=== PATIENT | female | born 1940 | race Caucasian/White ===

== ENCOUNTER 2024-03-13 21:00 | Inpatient (IN) | payer MEDICARE, BC, SELFPAY ==
[2024-03-13 18:13] VITALS: BP 177/86
[2024-03-13 18:59] VITALS: BMI 19.7
[2024-03-13 19:00] VITALS: BP 150/62
--- NOTE | 2024-03-13 19:14 | EDRN ---
Report received, introduced myself to patient and family, patient is in a lot of pain, spoke with FREDY Tarango who signed on to patient, and informed her she will probably need pain medication before she is able to go to xray.
[2024-03-13] MEDS: ZOFRAN 4 MG IV (19:30)
[2024-03-13] MEDS: DILAUDID 0.5 MG IV (19:30)
--- NOTE | 2024-03-13 20:45 | EDRN ---
Hospitalist at bedside working on admission
--- NOTE | 2024-03-13 20:51 | HPS.HSE ---
Family Physician
-
Family Physician: * NONE
Chief Complaint
-
Mechanical fall
History of Present Illness
This is an 83-year-old female with past medical history of CAD status post stenting in 2005, hypertension, hyperlipidemia, history of melena or status post resection and lymph node dissection who presents to the emergency department after a
mechanical fall at home.
Patient was visiting granddaughter. While walking down the stairs she was not pain attention and missed a step resulting in a fall. She there was no loss of consciousness. She was immediately awake and had no seizure-like activity. She had
immediate pain and difficulty ambulating so was brought to the emergency department where she was found to have a right sided intertrochanteric hip fracture. The fall was from standing height. Patient denies history of osteoporosis.
Patient had a recent stress test followed by cardiac cath on February 22. The cath showed patent stent and otherwise clean coronaries. This was done partially preparation for skin biopsy and lymph node dissection. The patient did not require
chemotherapy after the surgical intervention.
In the ED she was hypertensive to 170/80 with otherwise stable vital signs. CT scan of the head shows no acute intracranial process. C-spine CT was negative for subluxation or fracture. He femoral and knee x-rays resulted in identification of a
right-sided comminuted angulated intra trochanteric hip fracture.
Medical History
Past Medical History
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
Past Surgical History: Reports Other (Lymph node dissection)
Social History
Tobacco: Non-smoker
Alcohol: Occasional
Drug: None
Personal:
Living: Alone
Employment: Retired
Family History
Family History: CAD
Allergies / Home Medications
Allergies reflects when Allergies were last updated in [facility].
Home Medications with original date entered in [facility]
Allergy/Medication List:
Allergies
Allergy/AdvReac Type Severity Reaction Status Date / Time
No Known Allergies Allergy Unverified 03/13/24 18:52
Home Medications
ezetimibe 10 mg tablet 10 mg PO DAILY 03/13/24
losartan 50 mg tablet 50 mg PO DAILY 03/13/24
rosuvastatin 40 mg tablet 40 mg PO DAILY 03/13/24
Aspirin 81mg tablet, 81 mg PO DAILY
Review of Systems
-
History Source: Patient
Constitutional: Reports No Symptoms
EENT: Reports No Symptoms
Respiratory: Reports No Symptoms
Cardiac: Reports No Symptoms
Abdomen/GI: Reports No Symptoms
: Reports No Symptoms
Musculoskeletal: Reports Joint Pain
Skin: Reports No Symptoms
Neurological: Reports No Symptoms
Endocrine: Reports No Symptoms
Hematologic/Lymphatic: Reports No Symptoms
Psych: Reports No Symptoms
Physical Exam
Vital Signs
Vital Signs
Temp Pulse Resp BP Pulse Ox
98.1 F 97 16 177/86 98
03/13/24 18:09 03/13/24 18:13 03/13/24 18:09 03/13/24 18:13 03/13/24 18:13
Physical Exam
General: Well Developed, Well Nourished and Pain
HEENT: NormoCephalic, Anicteric, Moist mucous membranes, Atraumatic and PERRLA
Respiratory: Clear
Cardiac: S1/S2 and Regular Rhythm
Breast: Deferred by me
GI: Soft, Non Tender, Non Distended and Normal Bowel Sounds
Rectal: Deferred by Provider
Genito-urinary: Deferred by me
Musculoskeletal: No Clubbing, No Cyanosis, No Edema and Other (Found right leg externally rotated but did not attempt to straighten due to pain and known fracture. Distal pulses intact)
Skin: Warm
Neuro: AO x 3 and No Sensory Deficits
Hematologic/Lymphatic: No Lymphadenopathy
Psych: Calm
Data Reviewed
-
Diagnostic Radiology: Report Reviewed by me
CT Scan: Report Reviewed by me
Lab Data: Labs Reviewed by me
Old Records: Reviewed
Impression/Plan
-
IMPRESSION:
[id number] with history of CAD status post stent (2005), hypertension and history of skin cancer status post excision and lymph node dissection who presents to the emergency department with right hip pain following a mechanical fall from a
standing height which resulted in right comminuted angulated intratrochanteric hip fracture. Well appearing otherwise.
PLAN:
1. Hip Fracture -
- admit to med/surg
- Ortho (Dr. Shepard ) aware, NPO after midnight, She had a normal cardiac cath on February 23 2024, patent stent and [place] vessels. Done in preparation for skin excision and lymph dissection for melanoma.
- pain control and antiemetics
- PT eval
- IVF to KVO
- continue aspirin 81 after procedure
- continue daily losartan and statin
2.HTN
- as above, continuing losartan and statin
DVT PPX - heparin sq pending creatinine
Code Status - Full Code
[2024-03-13 21:06] VITALS: BP 142/75
[2024-03-13 21:07] VITALS: BP 142/75
--- NOTE | 2024-03-13 21:07 | ED.GENMED ---
History of Present Illness
General
Chief Complaint: Fall
Source: patient and family
Exam Limitations: none
Time Seen by Provider: 03/13/24 18:39
Nursing documentation reviewed up to this point in time: agreed with
History of Present Illness
History of Present Illness:
83-year-old female past medical history of CAD, hypertension presenting to the emergency department after mechanical fall over 1 step landing mainly on her right leg unable to ambulate since EMS had to bring her to the ER. Of note in the triage
note she was listed as taking blood thinners but she does not currently take Plavix. Claims that she may have hit her head but denies any symptoms in this regard no head pain neck pain numbness or weakness. Patient's only concern at this point is
the right hip pain.
Review of Systems
Review of Systems
Allergies reviewed?: Yes
All Other Systems: ROS reviewed and negative except as documented in HPI and ROS
Phy Exam
Physical Exam
Physical Exam:
GENERAL: Alert , in no apparent distress
EYE: pupils equal and reactive
NECK: Supple, no significant adenopathy.
ENT: o/p clr, mmm.
CARDIAC: Regular rate and rhythm .
LUNGS: Clear breath sounds bilaterally, no acute respiratory distress, no wheezes/rales/rhonchi
ABDOMEN: Soft, without focal tenderness, no r/g, no cvat
NEUROLOGICAL: Alert and oriented, no focal neuro deficits
SKIN: Warm and dry, skin intact.
MUSCULOSKELETAL: Patient is holding her right hip in flexion with knee flexion as well unwilling to move at the hip. Also externally rotated. Normal distal neurovascular examination.
PSYCH: Normal and appropriate interaction.
Course
Orders/Labs/Results
Orders:
Orders
03/13/24 18:07
CT Head W/o Iv Contrast Urgent
Comment:
Reason For Exam: fall
Knee, Right 4 or More Views [CR Knee- Right 4 Or More View*] Urgent
Comment:
Reason For Exam: fall
03/13/24 18:08
Hip, Right 2-3 Views [CR Hip - RT w/wo Pel 2-3 Vw*] Urgent
Comment:
Reason For Exam: fall
Include a pelvis x-ray?: Yes
03/13/24 18:09
Femur, Right 2 View [CR Femur - Right Min 2 Vw] Urgent
Comment:
Reason For Exam: fall
03/13/24 18:40
CT Cervical Spine W/o Iv Contr Urgent
Comment:
Reason For Exam: fall hit head
03/13/24 19:25
HYDROmorphone [Dilaudid] 0.5 mg IV NOW STA
03/13/24 19:26
Ondansetron Injectable [Zofran] 4 mg IV NOW STA
03/13/24 20:27
CBC/With Diff [Complete Blood Count/With Diff] Urgent
CMP [Comprehensive Metabolic Panel] Urgent
03/13/24 20:36
Admit/Transfer Patient As Directed
Co-Sign Provider:
Level of Care: Inpatient admission
Assign to:: Medical/Surgical
Physician / Group: hospitalist
Diagnosis: Hip fracture
Reason for Hospitalization: hip fracture
Expected length of stay greater than two midnights?: Yes
ELOS- Estimated Length of Stay in days: 2
I certify the patient meets the requirements for IP care: Yes
PRN Pain Medication Management As Directed
May give lesser potent ordered pain med per pt: Yes
preference::
Protocol:: Medication orders for pain may be administered in a
manner that supports deferring to patient preference
when the pt is:
- Requesting an ordered lesser potent pain medication.
Least to most potent pain medications are defined
as: acetaminophen < NSAID < tramadol < opioids
(morphine, oxycodone, hydromorphone).
- Requesting a lesser dose of the same medication IF
ORDERED.
- Requesting a less intrusive route of administration
if both routes are prescribed by the provider (PO <
IV).
03/13/24 20:37
Code Status As Directed
Resuscitation Status: Full Code
03/14/24 08:00
Ezetimibe [Zetia] 10 mg PO DAILY
Losartan [Cozaar] 50 mg PO DAILY
Rosuvastatin Calcium [Crestor] 40 mg PO DAILY
Vital Signs
Initial and Last Documented VS:
Initial Vital Signs
Temp Resp
98.1 F 16
03/13/24 18:09 03/13/24 18:09
Last Documented Vital Signs
Temp Pulse Resp BP Pulse Ox
98.1 F 97 16 150/62 98
03/13/24 18:09 03/13/24 18:13 03/13/24 18:09 03/13/24 19:00 03/13/24 18:13
MDM/Problems Addressed
MDM/Problems Addressed:
83-year-old female presenting to the emergency department today with concerns of right-sided hip discomfort after a fall. She also may have hit her head. She is not on thinners. Head CT without emergent findings. Hip x-ray showing hip fracture.
Case was discussed with orthopedics and would like the patient admitted for surgical correction tomorrow. N.p.o. at midnight.
*Critical Care Note
Total Time (30-74mins, 75-104mins- exclusive of procedures): Not Applicable
ED Attending Note
-
Portions of this chart may have been created with voice recognition software.� Occasional wrong word or��sound alike� substitutions may have occurred due to the inherent limitations of voice recognition software.
Discharge Plan
Departure
Patient Disposition: Admit
Date of Disposition: 03/13/24
Time of Disposition: 21:11
Admit to: Med/Surg
Admit to doctor: Sara
Presentation/result/management discussed w/ accepting MD/DO: Hospitalist
Patient with high blood pressure during this ER visit?: No
Condition: Good
Covid-19: Not Applicable
Discharge Problem:
Closed hip fracture
Interventions
Interventions:
*Risk Screen - Suicide Last Done: 03/13/24 18:09
*General Assessment Last Done: 03/13/24 18:09
*Neglect/Abuse Screening Last Done: 03/13/24 18:09
ED- Fall Risk Assessment Last Done: 03/13/24 19:15
*ED COVID-19 Vaccine History Last Done: 03/13/24 18:09
ED-Musculoskeletal Assessment Last Done: 03/13/24 18:09
ED- Neurological Assessment Last Done: 03/13/24 18:09
ED-Skin Assessment Last Done: 03/13/24 18:09
[2024-03-13 21:17] LABS: % Basophils 0.3 % (0-2); % Eosinophils 0.2 % (0-6); % Immature Granulocytes 0.6 % (0-0.5); % Lymphocytes 6.6 % (20.5-51.1); % Monocytes 6.1 % (1.7-9.3); % Neutrophils 86.2 % (42.2-75.2); Absolute Immature Granulocytes 0.1 10^3/uL (0-0.05); Absolute Lymphocytes 0.9 10^3/uL (1.2-3.4); Absolute Monocytes 0.9 10^3/uL (0.1-0.6); Absolute Neutrophils 12.3 10^3/uL (1.4-6.5); Hematocrit 31.6 % (37.0-47.0); Mean Corp Hgb Conc. 34.8 g/dL (33.0-37.0); Mean Corpuscular Hgb 29.9 pg (27.0-31.0); Mean Corpuscular Volume 85.9 fL (81.0-99.0); Mean Platelet Volume 10.5 fL (7.4-10.4); Nucleated Red Blood Cells % 0 %; Platelet Count 161 10^3/uL (130-400); Red Blood Cell Count 3.68 10^6/uL (4.20-5.40); Red Cell Dist. Width 12.1 % (11.5-14.5); White Blood Cell Count 14.2 10^3/uL (4.8-10.8)
[2024-03-13 21:36] LABS: ALT (SGPT) 51 U/L (0-35); AST (SGOT) 61 U/L (14-36); Albumin 3.4 g/dl (3.5-5.0); Alkaline Phosphatase 57 U/L (38-126); Blood Urea Nitrogen 24 mg/dl (7-17); Calcium 9.7 mg/dl (8.4-10.2); Carbon Dioxide 27 mmol/L (22-30); Chloride 106 mmol/L (98-107); Estimated Creatinine Clearance 44 ml/min; Glucose 184 mg/dl (70-99); Potassium 3.9 mmol/L (3.5-5.1); Sodium 141 mmol/L (135-145); Total Bilirubin 0.9 mg/dl (0.2-1.3); Total Protein 5.6 g/dl (6.3-8.2); eGFR > 60.00
[2024-03-13] MEDS: DILAUDID 0.25 MG IV (21:43)
[2024-03-13 22:15] VITALS: BP 140/71; BMI 18.3
[2024-03-13] MEDS: LR 500 IV (23:12)
[2024-03-13] MEDS: SENOKOT PO (23:13)
[2024-03-13] MEDS: HEPARIN 5000 UNITS SC (23:13)
[2024-03-13] MEDS: TYLENOL 650 MG PO (23:14)
[2024-03-13] MEDS: COLACE PO (23:14)
[2024-03-14] VITALS (8 sets, daily range): BP systolic 96–138; BP diastolic 45–103
--- NOTE | 2024-03-14 01:18 | TRANSFER ---
Pt arrived to floor from ED at 2155 dx s/p fall right hip fracture, daughter at bedside. VSS. RLE shortened and externally rotated. Purewick and static overlay in place. Call monge within reach. Daughter stated she will be staying the night to talk
to surgeon in the morning.
[2024-03-14] MEDS: TYLENOL PO ×2 (04:12→17:47)
[2024-03-14] MEDS: ROXICODONE 5 MG PO (05:12)
[2024-03-14] MEDS: FLOMAX 0.4 MG PO (05:12)
--- NOTE | 2024-03-14 06:33 | W.PN.HOSP.TC ---
Today's Communication/Plan
-
NPO for OR with orthopedic today
Risks of complication from surgical procedure is not prohibitive
cont pain control
IVF gentle hydration
Assessment / Plan
Assessment / Plan
Physical Exam:
GENERAL: Alert , in no apparent distress
HEENT: pupils equal and reactive. Hard of hearing
NECK: Supple, no significant adenopathy.
CARDIAC: Regular rate and rhythm .
LUNGS: Clear breath sounds bilaterally, no acute respiratory distress, no wheezes/rales/rhonchi
ABDOMEN: Soft, without focal tenderness, no r/g, no cvat
SKIN: Warm and dry, skin intact.
MUSCULOSKELETAL: right hip in flexion with knee flexion, right foot externally rotated
NEUROLOGICAL: Awake Alert Conversant Coherent
PSYCH: Calm Cooperative
83F from [place] here [place], hx CAD status post stent (2005), hypertension and history of skin cancer status post excision and lymph node dissection p/w with right hip pain following a mechanical fall from a standing height which
resulted in right comminuted angulated intratrochanteric hip fracture. Well appearing otherwise. VSS
PLAN:
# Rt Hip Fracture -
- Ortho eval appreciated NPO for surgical intervention 03/14
-Risk of complications from above surgery is not prohibitive
-reportedly had normal cardiac cath on February 23 2024, patent stent and [place] vessels. Done in preparation for skin excision and lymph dissection for melanoma.
- pain control and antiemetics
- eventual PT/OT eval when clear as per orthopedic
- IVF to KVO
- continue aspirin 81 after procedure
- continue daily losartan and statin
#HTN
as above, continuing losartan and statin
#Lt Ft/ankle pain
likely ankle sprain
Lt Ankle and Foot X-ray no fracture or dislocation noted
DVT PPX - heparin sq on hold for surgical procedure as above
Code Status - Full Code
discussed with patient, patient's daughter Trish, and orthopedic
I spent a total of 50 minutes with the patient or on the floor. More than 50% of this time involved counseling and coordination of care.
Anticipated Discharge: 24 - 48 hours
Subjective/Interval History
-
Date of Service: March 14, 2024
No acute distress resting comfortably in bed. Daughter Trish present during evaluation.
Objective Data
-
Labs:
Laboratory Results
03/13/24
21:04
WBC 14.2 H
Hgb 11.0 L
Hct 31.6 L
Plt Count 161
Sodium 141
Potassium 3.9
Chloride 106
Carbon Dioxide 27
BUN 24 H
Creatinine 0.8
Glucose 184 H
Calcium 9.7
Total Bilirubin 0.9
AST 61 H
ALT 51 H
Alkaline Phosphatase 57
Vital Signs:
Vital Signs
Temp Pulse Resp BP Pulse Ox
98.9 F 95 20 140/71 97
03/13/24 22:15 03/13/24 22:15 03/13/24 22:15 03/13/24 22:15 03/13/24 22:15
I&O
03/12/24 03/13/24 03/14/24
06:59 06:59 06:59
Intake Total 400 / 400
Output Total 800 / 800
Balance -400 / -400
[2024-03-14] MEDS: SENOKOT PO ×2 (07:24→22:00)
[2024-03-14] MEDS: COLACE PO ×2 (07:24→22:00)
[2024-03-14] MEDS: HEPARIN SC (07:40)
[2024-03-14] MEDS: ZETIA 10 MG PO (07:58)
[2024-03-14] MEDS: COZAAR 50 MG PO (07:58)
[2024-03-14] MEDS: CRESTOR 40 MG PO (07:58)
[2024-03-14] MEDS: TYLENOL 650 MG PO ×3 (07:59→22:26)
--- NOTE | 2024-03-14 09:01 | CON.ORTHO ---
Addendum entered and electronically signed by Chintan Shepard MD 03/14/24 21:28:
I saw evaluated the patient at bedside. Patient was visiting from [place] and sustained a trip and fall inside her daughter's home. She landed on the right side and had an acute onset of pain and inability to weight-bear. She has brought to the
emergency department where x-rays showed a displaced proximal femur fracture. I discussed with her and her family treatment options. We discussed nonoperative and operative treatments. Given the high morbidity associated with nonoperative
treatment, shared decision was to proceed with operative treatment. All questions were answered.
Original Note:
Consultation
-
Date/Time Consultation Requested: Mar 24
Date/Time Consultation Performed: Mar 24
Requesting Provider: Sara
Performing Provider: Ronaldo Shepard
Reason for Consultation: Right hip fracture
Consultation - Orthopedics
History
Dictation#[id number]
HPI: Requested in consultation to this very pleasant 83-year-old white female, PMH CAD, hypertension, melanoma, seen with her daughter at the bedside, after a mechanical fall at home yesterday. She reports missing the last step in her daughter's
home. She landed on her right side. She was subsequently transported to [facility] ED via EMS where plain radiographs confirmed a fracture of her right proximal femur. it was originally reported that she took Plavix, but she does not.
She denies LOC with possible head strike. no prodrome. She also reports a possible injury to her left foot and ankle. we have been requested for the consideration of surgical fixation
Allergies / Home Medications
Allergy/AdvReac Type Severity Reaction Status Date / Time
No Known Allergies Allergy Unverified 03/13/24 18:52
�Medication �Instructions �Recorded
aspirin 81 mg PO DAILY Blood Clot 03/13/24
Prevention/Tx
ezetimibe 10 mg tablet 10 mg PO DAILY High Cholesterol 03/13/24
losartan 50 mg tablet 50 mg PO DAILY Blood Pressure 03/13/24
rosuvastatin 40 mg tablet 40 mg PO DAILY High Cholesterol 03/13/24
Vital Signs / Lab Results
Temp Pulse Resp BP Pulse Ox
98.4 F 97 16 120/60 96
03/14/24 07:51 03/14/24 07:51 03/14/24 07:51 03/14/24 07:51 03/14/24 07:51
03/13/24 21:04
03/13/24 21:04
Assessment / Plan
PE: Afeb. Bedrest. Right hip skin intact. Knee and hip flexed. Generalized pain to palpation about the right hip. Deferred range of motion due to known fracture. Knee is nontender. Calf is soft and nontender. DNVI RLE. Left foot and ankle a
bit swollen. Some generalized tenderness over the lateral ankle. DNVI LLE
Xrays: Right femur reveals a comminuted and impacted right intertrochanteric hip fracture
Impression: MELVI. Left foot/ankle pain
Plan: Bedside discussion with both the patient and her daughter seem to yield their understanding to the nature of her right femur fracture. Surgical and nonsurgical management were discussed at length, including the RBAs of each approach. After
discussing at length they have both accepted all the proposed risks of surgery and wish to proceed. We will look to proceed a bit later today with surgical treatment of her right femur under the direction of Dr. Shepard, as his availability
permits, and as the OR allows. We briefly discussed the postop and rehab course as well. We will appreciate CM assistance with disposition. Surgical and blood consents have been signed by the patient and placed in the chart. Operative site marked
as the right hip. Patient will remain NPO. ABX and irrigation products on-call. T&S completed. Hospitalist aware and will hopefully have the patient optimized for surgery by this afternoon. Again, we will look to proceed with a gamma nail fixation
of her right femur a bit later this afternoon. I will also request plain radiographs of the left foot and ankle at the patient and daughter's request
[2024-03-14] MEDS: LR 500 IV (11:23)
--- NOTE | 2024-03-14 11:50 | CM ---
Dx - Hip fx
Met with pt and her daughter at bedside
Pt lives in [facility] - independent at baseline, active. Visiting family in area, fell at grand-daughters home and fx hip
DME - none
SNF/HH - denies past hx
Has ride at discharge
PCP - Dr Fields([facility])
Pharm - [facility]
Pt for poss surgery today
Will need PT/OT eval post op
Discussed SNF vs HH Given list of SNF choices from Medicare.gov
Daughter reports she is from [place] but has a home in [place], [place] - if HH recommended would plan to stay at that location with mother or SNF near that location. Given list of SNF choices from Medicare.gov
Plan - TBD based on pts needs post-op
--- NOTE | 2024-03-14 21:06 | OR.RPT ---
Operative Report
Operative Report
Orthopaedic Surgery Operative Note
DATE OF OPERATION: 03/14/2024
PREOPERATIVE DIAGNOSIS: Intertrochanteric Hip Fracture, Right
POSTOPERATIVE DIAGNOSIS: Same
OPERATION PERFORMED: Right intertrochanteric hip fracture open reduction and internal fixation with cephalomedullary nail
SURGEON: Chintan Shepard MD
[facility] COURT REPORTER: NA
ANESTHESIA: Spinal
COMPLICATIONS: None.
ESTIMATED BLOOD LOSS: 300 mL.
DRAINS: None
SPECIMEN: None
IMPLANTS:
[place]ichael Gamma Cephalomeduallary nail; 175mm x 10 mm
Ruthann lag screw, 95 mm.
5.0mm distal interlocking screw x1
INDICATIONS FOR PROCEDURE
83F presented to the ED after a fall. Xrays showed a displaced comminuted right intertrochanteric femur fracture. I discussed treatment options with the patient and family including nonoperative and operative treatments. We reviewed the natural
history of the problem, as well as the risks, benefits, and alternatives of various treatment options. Shared decision was to proceed with surgical treatment. The patient and family understood the risks including, but were not limited to, bleeding,
infection, failure to relieve pain, more pain than preop, damage to blood vessels and nerves, need for reoperation, mechanical failure of the implants, wound healing problems, stiffness, instability, blood clot, pulmonary embolism, myocardial
infarction, pneumonia, arrhythmia, CVA, and . All questions were answered, and informed consent was obtained.
PROCEDURE IN DETAIL: The patient was identified in the preoperative holding area. The operative limb was identified as the operative site and marked with my initials. The patient was transferred to the operating room. Spinal anesthesia was
performed. The patient was transferred to the [facility] operative table. IV antibiotics and tranexamic acid were given. All bony prominences were well padded. The operative limb was prepped and draped in the usual sterile fashion.
We performed a surgical time-out. A 1.6mm (0.65'') pedro wire was placed in the distal femur, and traction bow was applied. This was well padded over the knee. 15lbs of skeletal traction was applied. The fracture was reduced with the aid of
flouroscopy. A small lateral incision was made, and a bone hook was used to aid reduction. A small anterior incision was made to help with reduction anterior to posterior. Once reduced, the guide wire was placed over the medial aspect of the tip of
the greater trochanter. The guide wire was advanced and checked for appropriate position on AP and lateral. The pin guide wire was advanced to the level of the lesser trochanter. Incision was made about the wire. The opening reamer was used to open
the starting point over the guide wire. The nail was then inserted down to the appropriate depth. The targeting guide was assembled, and a lateral incision was made for lag screw placement. A guide pin was advanced into the femoral head. Position
was checked on AP and lateral. The length was measured to be 100mm. The drill was set to the appropriate depth, and the lag screw path was drilled over the guide wire. The lag screw was then inserted into the femoral head just distal to the
subchondral bone. The fracture was compressed with excellent purchase. The locking screw was then placed into the top of the nail. Skeletal traction was removed, and a single distal interlocking screw was placed into the static interolocking hole
with through the targeting guide. Final fluoroscopy shots were performed which showed appropriate position and length of the implant and anatomic reduction of the fracture.
The incisions were copiously irrigated with 3L normal saline. The deep fascial layers were closed with 0 PDS. The dermal layer closed with 2-0 PDS running. The skin was closed with alexandra. Sterile dressings were applied. The patient was awoken from
anesthesia without complication. Sponge and instrument counts were correct x2 at the end of the case.
I was present and participated in the entire procedure. The patient was sent to the recovery room in stable condition.
Post operative plan:
WBAT
PT/OT
Pain control
Delirium prevention
ABX: Ancef x24 hours
DVT: ASA 325 daily
Jayro Shepard MD
--- NOTE | 2024-03-14 22:00 | PTCARENOTE ---
Pt arrived back to unit from surgery, able to make needs known, denies pain at this time. VSS call monge within reach. assisted pt with calling daughter at bedside, care ongoing.
[2024-03-14] MEDS: NORMOSOL-R/PLASMALYTE-A 1000 IV (22:27)
[2024-03-14] MEDS: ASPIRIN 325 MG PO (22:27)
[2024-03-14] MEDS: LR IV (23:07)
[2024-03-15] VITALS (9 sets, daily range): BP systolic 94–115; BP diastolic 45–65; PULSE 105–117; O2SAT 99
[2024-03-15] MEDS: TYLENOL PO
[2024-03-15] MEDS: ANCEF 5 IV ×2 (02:11→10:48)
[2024-03-15] MEDS: TYLENOL 650 MG PO ×5 (04:44→19:51)
--- NOTE | 2024-03-15 06:59 | W.PN.ORTHO ---
Addendum entered and electronically signed by Devin Nagel PA-C 03/15/24 15:56:
Hemoglobin 11.0 (03/13/2024). Hemoglobin POD #1 8.0 (03/15/2024). Repeat Hemoglobin 8.0 (03/15/2024). Post-op anemia likely due to acute blood loss and hemodilution. Spoke to medical team who is aware of patient's hemoglobin; will continue to
watch closely.
Plain radiographs of the knee (4V) obtained at [facility] 03/13/2024 were reviewed. Radiologist impression: Findings suggesting acute fracture of medial right patella as described above with mild displacement. Radiographs were reviewed with
Dr. Shepard - no obvious evidence for acute right patella fracture. I spoke with the patient's nurse. Patient denies any right knee pain. I have notified my colleague who will further assess clinically.
Original Note:
Today's Communication / Plan
-
POD #1 Right Hip Gamma Nail 03/14/[address] Shepard.
- WBAT RLE with walker for assistance.
- We appreciate the assistance of PT/OT.
- DVT prophylaxis: ASA 325mg once daily x 4 weeks.
- Pain control as needed. Ice and elevation for pain and edema control.
- AM labs currently pending. Monitor Hgb.
- Surgical dressings to remain in place for 2 weeks. Skin clip removal at 2 weeks post-op.
- Case management consult for discharge planning.
- Orthopedic surgery will continue to follow along.
Assessment
.
Distal Motor Intact: Yes
Dressing:
Mepilex dressing clean, dry, and intact. One 4 x 4 with Tegaderm over proximal medial thigh, CDI. Two 4 x 4's with Tegaderm about the medial and lateral knee clean, dry, and intact.
Calf is soft and nontender to palpation.
Able to plantarflex and dorsiflex right ankle.
Assessment:
POD #1 Right Hip Gamma Nail 03/14/[address] Shepard.
Plan
.
Surgery / Date: 03/14/[address]N with Dr. Shepard
DVT Prophylaxis: Aspirin
Activity:
Out of bed.
PT/OT
Discharge Information:
Appreciate CM.
Subjective
.
.:
Patient resting comfortably in bed. Reports that her right hip pain is controlled at this time. Denies any other new complaints.
Vital Signs and Labs
.
Vital Signs and Labs:
Temp Pulse Resp BP Pulse Ox
98.2 F 91 20 109/49 95
03/15/24 03:44 03/15/24 03:44 03/15/24 03:44 03/15/24 03:44 03/15/24 03:44
[2024-03-15 07:19] LABS: Hematocrit 23.4 % (37.0-47.0); Mean Corp Hgb Conc. 34.2 g/dL (33.0-37.0); Mean Corpuscular Hgb 30.8 pg (27.0-31.0); Mean Platelet Volume 11.3 fL (7.4-10.4); Platelet Count 120 10^3/uL (130-400); Red Cell Dist. Width 12.5 % (11.5-14.5); White Blood Cell Count 12.8 10^3/uL (4.8-10.8)
[2024-03-15 07:22] LABS: Blood Urea Nitrogen 22 mg/dl (7-17); Calcium 8.8 mg/dl (8.4-10.2); Carbon Dioxide 27 mmol/L (22-30); Chloride 107 mmol/L (98-107); Estimated Creatinine Clearance 36 ml/min; Glucose 134 mg/dl (70-99); Phosphorus 3.4 mg/dl (2.5-4.5); Potassium 3.7 mmol/L (3.5-5.1); Sodium 141 mmol/L (135-145); eGFR > 60.00
--- NOTE | 2024-03-15 07:38 | W.PN.HOSP.TC ---
Today's Communication/Plan
-
PMR eval requested
transfuse 1 PRBC
PT/OT
pain control
monitor H&H
Assessment / Plan
Assessment / Plan
Physical Exam:
GENERAL: Alert , in no apparent distress
HEENT: pupils equal and reactive. Hard of hearing
NECK: Supple, no significant adenopathy.
CARDIAC: Regular rate and rhythm .
LUNGS: Clear breath sounds bilaterally, no acute respiratory distress, no wheezes/rales/rhonchi
ABDOMEN: Soft, without focal tenderness, no r/g, no cvat
SKIN: Warm and dry, skin intact.
MUSCULOSKELETAL: right hip in flexion with knee flexion, right foot externally rotated
NEUROLOGICAL: Awake Alert Conversant Coherent
PSYCH: Calm Cooperative
83F from [place] here visiting great grandkids, hx CAD status post stent (2005), hypertension and history of skin cancer status post excision and lymph node dissection p/w with right hip pain following a mechanical fall from a standing height which
resulted in right comminuted angulated intratrochanteric hip fracture. Well appearing otherwise. VSS
PLAN:
# Rt Hip Fracture -
- Ortho eval appreciated s/p ORIF 03/14
-reportedly had normal cardiac cath on February 23 2024, patent stent and [place] vessels. Done in preparation for skin excision and lymph dissection for melanoma.
- pain control and antiemetics
- IVF support completed
- ASA DVT ppx as per orthopedic
- continue daily losartan and statin
#Anemia likely acute blood loss and possible hemodilution
#Severe Iron deficiency and likely anemia of chronic disease
transfuse 1PRBC goal Hgb>8
IV iron supplementation
#HTN
as above, continuing losartan and statin
#Lt Ft/ankle pain
likely ankle sprain
Lt Ankle and Foot X-ray no fracture or dislocation noted
#Underweight
BMI 18.3
Encourage oral intake
PT/OT appreciated Acute Rehab, PMR eval requested
DVT PPX - ASA as per orthopedic
Code Status - Full Code
discussed with patient, patient's daughter Trish, and orthopedic
I spent a total of 50 minutes with the patient or on the floor. More than 50% of this time involved counseling and coordination of care.
Anticipated Discharge: 24 - 48 hours
Subjective/Interval History
-
Date of Service: March 15, 2024
No acute distress. Appears comfortable at this time. Overall reports feeling well. Pain controlled at rest. Daughter Trish and niece Angelia present during evaluation.
Objective Data
-
Labs:
Laboratory Results
03/15/24
04:40
WBC 12.8 H
Hgb 8.0 L D
Hct 23.4 L
Plt Count 120 L D
Sodium 141
Potassium 3.7
Chloride 107
Carbon Dioxide 27
BUN 22 H
Creatinine 0.9
Glucose 134 H
Calcium 8.8
Vital Signs:
Vital Signs
Temp Pulse Resp BP Pulse Ox
98.2 F 91 20 109/49 95
03/15/24 03:44 03/15/24 03:44 03/15/24 03:44 03/15/24 03:44 03/15/24 03:44
I&O
03/14/24 03/15/24 03/16/24
06:59 06:59 06:59
Intake Total 400 / 400 480 / 480
Output Total 800 / 800
Balance -400 / -400 480 / 480
[2024-03-15] MEDS: CELEBREX 100 MG PO ×2 (09:13→19:51)
[2024-03-15] MEDS: COZAAR 50 MG PO (09:13)
[2024-03-15] MEDS: CRESTOR 40 MG PO (09:13)
[2024-03-15] MEDS: ASPIRIN 325 MG PO (09:13)
[2024-03-15] MEDS: ZETIA 10 MG PO (09:13)
[2024-03-15] MEDS: SENOKOT PO ×2 (09:14→19:51)
[2024-03-15] MEDS: COLACE PO ×2 (09:18→19:52)
[2024-03-15] MEDS: NORMOSOL-R/PLASMALYTE-A 1000 IV (10:45)
[2024-03-15] MEDS: LR IV (11:53)
--- NOTE | 2024-03-15 12:01 | CM ---
Case management following for discharge planning
Chart reviewed. Met with pt and her daughter at bedside
PT eval - recs acute rehab
Discussed with pts daughter. Given list of acute rehabs near her home [facility] -[id number]
Prefers [facility] for SNF
CM will follow up for acute rehab choice
Plan - acute vs snf wheb medically ready
[2024-03-15 12:51] LABS: Hematocrit 23.7 % (37.0-47.0)
--- NOTE | 2024-03-15 14:50 | PN.CDI ---
CDI
- -
CDI:
Physician Documentation Request
Admit Date: 03/13/24 21:00
Dear Ortho,
Please review the following and provide your response in the progress notes.
Clinical Indicators:
The diagnosis of acute fracture the medial right patella was included in the signed 03/13 Knee x-ray
Please indicate in your progress notes if you are in agreement that the above diagnosis is valid for this patient:
____ - Acute fracture the medial right patella is a valid diagnosis (Please include it in your progress notes)
____ - Acute fracture the medial right patella is not a valid diagnosis for this patient
____ - Acute fracture the medial right patella is not yet confirmed but remains a suspected condition
____ - Other
Use of terms such as suspected, likely, concern for, or probable are acceptable for a diagnosis that is being evaluated, monitored or treated as if it exists and can be coded in the inpatient setting, when documented at the time of discharge.
Thank you,
Olegario Lovell RN
CDI Specialist
Please use your independent medical judgment in providing your response.
--- NOTE | 2024-03-15 14:59 | PN.CDI ---
CDI
- -
CDI:
Physician Documentation Request
Admit Date: 03/13/24 21:00
Dear Ortho,
Please review the following and provide your response in the progress notes.
Clinical Indicators:
- 03/14 Op Report indicates 300ml estimated blood loss
- 3L IVF given
Laboratory Tests
03/13/24 03/15/24
21:04 04:40
Hgb 11.0 L 8.0 L D
Please clarify the appropriate diagnosis that supports the above lab abnormalities and additional evaluation, monitoring and/or treatment rendered:
Anemia, due to acute blood loss and hemodilution
Anemia due to hemodilution only
Other
Use of terms such as suspected, likely, concern for, or probable (associated with a specific diagnosis that is being evaluated, monitored, or treated as if it exists) are acceptable and can be coded in the inpatient setting, when documented at the
time of discharge.
Thank you,
Olegario Lovell RN
CDI Specialist
Please use your independent medical judgment in providing your response.
--- NOTE | 2024-03-15 15:03 | PN.CDI ---
CDI
- -
CDI:
Physician Documentation Request
Admit Date: 03/13/24 21:00
Dear Doctor Herminio,
Please review the following and provide your response in the progress notes.
Clinical Indicators:
Height: 5'4
Weight: 106lbs
BMI: 18.3
Other Clinical Notes: 03/14 Ingredient Handler indicates underweight
If possible, please provide an associated diagnosis related to the abnormal BMI, such as:
Underweight
Cachectic
Other
Use of terms such as suspected, likely, concern for, or probable (associated with a specific diagnosis that is being evaluated, monitored, or treated as if it exists) are acceptable and can be coded in the inpatient setting, when documented at the
time of discharge.
Thank you,
Olegario Lovell RN
CDI Specialist
Please use your independent medical judgment in providing your response.
[2024-03-15] MEDS: PROTONIX 40 MG PO (16:01)
[2024-03-15 16:25] LABS: Iron < 20 ug/dl (37-170)
[2024-03-15 16:30] LABS: Total Iron Binding Capacity 189 ug/dl (265-497)
[2024-03-15 18:01] LABS: Vitamin B12 767 pg/ml (239-931)
[2024-03-15 18:59] LABS: Hematocrit 21.5 % (37.0-47.0); Hemoglobin 7.5 g/dL (12.0-16.0)
[2024-03-15 19:16] LABS: Folate 6.7 ng/ml (2.76-20)
[2024-03-16] MEDS: TYLENOL PO ×2 (03:56→05:00)
--- NOTE | 2024-03-16 04:33 | DOWNTIME ---
There was a [employer] Client Client Coordinator Downtime on 03/16/2024 from 0100 to 03/16/2024 at 0355. Downtime documentation of patient's care, including medication administrations, has been reconciled in the electronic record per guidelines. Refer to the
patient's paper chart under the miscellaneous tab to see printed paper medication records and downtime forms.
[2024-03-16 06:13] LABS: Hematocrit 24.7 % (37.0-47.0); Hemoglobin 8.8 g/dL (12.0-16.0); Mean Corp Hgb Conc. 35.5 g/dL (33.0-37.0); Mean Corpuscular Hgb 29.8 pg (27.0-31.0); Mean Corpuscular Volume 84.1 fL (81.0-99.0); Mean Platelet Volume 11.5 fL (7.4-10.4); Platelet Count 118 10^3/uL (130-400); Red Blood Cell Count 2.95 10^6/uL (4.20-5.40); Red Cell Dist. Width 13.6 % (11.5-14.5); White Blood Cell Count 10.4 10^3/uL (4.8-10.8)
[2024-03-16 06:23] LABS: Blood Urea Nitrogen 33 mg/dl (7-17); Calcium 8.6 mg/dl (8.4-10.2); Carbon Dioxide 26 mmol/L (22-30); Chloride 103 mmol/L (98-107); Estimated Creatinine Clearance 27 ml/min; Glucose 112 mg/dl (70-99); Iron 27 ug/dl (37-170); Magnesium 2.3 mg/dl (1.6-2.3); Phosphorus 2.7 mg/dl (2.5-4.5); Potassium 3.7 mmol/L (3.5-5.1); Sodium 138 mmol/L (135-145); eGFR 44.91
[2024-03-16 06:32] LABS: Percent Saturation 15 % (20-50); Total Iron Binding Capacity 169 ug/dl (265-497)
--- NOTE | 2024-03-16 07:20 | W.PN.UPDATE ---
Update Note
Progress Note Update
Ms. Vega is POD2 following her right hip cephalomedullary nail performed by Dr. Shepard. She is resting comfortably in bed this morning. She reports aching pain about the hip, but otherwise reports she is doing well. She was able to work with
physical therapy yesterday. She denies any pain about her knee.
Directed exam of the right leg reveals surgical dressings clean, dry and intact. Mild tenderness to palpation about the hip. No tenderness to palpation about the patella. Thigh soft and compressible. Calf soft and nontender. Patient able to wiggle
toes, plantar and dorsiflex ankle. NVID.
Hgb 8.8 this AM after 1unit PRBC yesterday.
POD #2 Right Hip Gamma Nail 03/14/[address] Shepard.
- My colleague, Devin, received notification from radiology yesterday about concern for right patella fracture. The images were reviewed with Dr. Shepard who agreed that there were no signs concerning for fracture on the x-ray. She is nontender about
her patella on exam. There is no clinical concern for patella fracture.
- WBAT RLE with walker for assistance. We appreciate the assistance of PT/OT.
- ASA 325mg once daily x 4 weeks for DVT ppx.
- Hgb 8.8 this AM after 1unit PRBC yesterday. Continue to monitor.
- Pain control as needed. Ice and elevation for pain and edema control.
- Surgical dressings to remain in place for 2 weeks. Skin clip removal at 2 weeks post-op.
- Case management consult for discharge planning.
- Patient is stable post-operatively from an orthopedic standpoint. Orthopedics will sign off for now. Please reach out with any additional questions or concerns.
--- NOTE | 2024-03-16 07:25 | W.PN.HOSP.TC ---
Today's Communication/Plan
-
monitor H&H
pain control
IV Iron infusion
PT/OT
monitor renal function
Assessment / Plan
Assessment / Plan
Physical Exam:
GENERAL: Alert , in no apparent distress
HEENT: pupils equal and reactive. Hard of hearing
NECK: Supple, no significant adenopathy.
CARDIAC: Regular rate and rhythm .
LUNGS: Clear breath sounds bilaterally, no acute respiratory distress, no wheezes/rales/rhonchi
ABDOMEN: Soft, without focal tenderness, no r/g, no cvat
SKIN: Warm and dry, skin intact.
MUSCULOSKELETAL: right hip in flexion with knee flexion, right foot externally rotated
NEUROLOGICAL: Awake Alert Conversant Coherent
PSYCH: Calm Cooperative
83F from [place] here visiting great grandkids, hx CAD status post stent (2005), hypertension and history of skin cancer status post excision and lymph node dissection p/w with right hip pain following a mechanical fall from a standing height which
resulted in right comminuted angulated intratrochanteric hip fracture. Well appearing otherwise. VSS
PLAN:
# Rt Hip Fracture -
- Ortho eval appreciated s/p ORIF 03/14
-reportedly had normal cardiac cath on February 23 2024, patent stent and [place] vessels. Done in preparation for skin excision and lymph dissection for melanoma.
- pain control and antiemetics
- IVF support completed
- ASA DVT ppx pain control as per orthopedic
- continue daily losartan and statin
#Elevation in Cr mild MICHELLE
cont monitoring
encourage oral hydration
will consider discontinuing celebrex if Cr cont to rise
#Anemia likely acute blood loss and possible hemodilution
#Severe Iron deficiency and likely anemia of chronic disease
transfuse 1PRBC with appropriate response noted goal Hgb>8
IV iron supplementation
#HTN
as above, continuing losartan and statin
#Lt Ft/ankle pain
likely ankle sprain
Lt Ankle and Foot X-ray no fracture or dislocation noted
#Underweight
BMI 18.3
Encourage oral intake
PT/OT appreciated Acute Rehab, PMR eval requested
DVT PPX - ASA as per orthopedic
Code Status - Full Code
discussed with patient and patient's daughter Trish
I spent a total of 50 minutes with the patient or on the floor. More than 50% of this time involved counseling and coordination of care.
Anticipated Discharge: 24 - 48 hours
Subjective/Interval History
-
Date of Service: March 16, 2024
No acute distress. pain well controlled at this time.
Objective Data
-
Labs:
Laboratory Results
03/16/24
04:57
WBC 10.4
Hgb 8.8 L
Hct 24.7 L
Plt Count 118 L
Sodium 138
Potassium 3.7
Chloride 103
Carbon Dioxide 26
BUN 33 H
Creatinine 1.2 H
Glucose 112 H
Calcium 8.6
Vital Signs:
Vital Signs
Temp Pulse Resp BP Pulse Ox
98.4 F 89 14 111/46 99
03/15/24 23:52 03/15/24 23:52 03/15/24 23:52 03/15/24 23:52 03/15/24 23:52
I&O
03/15/24 03/16/24 03/17/24
06:59 06:59 06:59
Intake Total 960 / 960 1820 / 1820
Output Total 350 / 350
Balance 960 / 960 1470 / 1470
[2024-03-16 07:45] VITALS: BP 121/56
[2024-03-16] MEDS: ROXICODONE 5 MG PO (08:55)
[2024-03-16] MEDS: COLACE PO ×2 (08:56→19:56)
[2024-03-16] MEDS: CRESTOR 40 MG PO (08:56)
[2024-03-16] MEDS: SENOKOT PO ×2 (08:56→19:56)
[2024-03-16] MEDS: TYLENOL 650 MG PO ×4 (08:56→19:56)
[2024-03-16] MEDS: ZETIA 10 MG PO (08:56)
[2024-03-16] MEDS: CELEBREX 100 MG PO ×2 (08:57→19:56)
[2024-03-16] MEDS: COZAAR 50 MG PO (08:57)
[2024-03-16] MEDS: PROTONIX 40 MG PO (08:57)
[2024-03-16] MEDS: ASPIRIN 325 MG PO (08:57)
[2024-03-16 10:17] VITALS: BP 122/53; BP 96/40; PULSE 91; O2SAT 96
[2024-03-16 10:26] VITALS: BP 122/53
[2024-03-16 12:10] LABS: Hematocrit 25.9 % (37.0-47.0); Hemoglobin 9.1 g/dL (12.0-16.0)
[2024-03-16] MEDS: FERRLECIT 110 MG IV (13:37)
[2024-03-16 15:40] VITALS: BP 101/46
[2024-03-16 23:10] VITALS: BP 113/46
[2024-03-17] MEDS: TYLENOL PO (00:23)
[2024-03-17] MEDS: TYLENOL 650 MG PO ×5 (03:15→20:02)
[2024-03-17 05:30] LABS: Hematocrit 23.1 % (37.0-47.0); Hemoglobin 8.1 g/dL (12.0-16.0); Mean Corp Hgb Conc. 35.1 g/dL (33.0-37.0); Mean Corpuscular Hgb 29.6 pg (27.0-31.0); Mean Corpuscular Volume 84.3 fL (81.0-99.0); Mean Platelet Volume 11.4 fL (7.4-10.4); Platelet Count 133 10^3/uL (130-400); Red Blood Cell Count 2.74 10^6/uL (4.20-5.40); Red Cell Dist. Width 13.6 % (11.5-14.5); White Blood Cell Count 9.1 10^3/uL (4.8-10.8)
[2024-03-17 05:46] LABS: Blood Urea Nitrogen 32 mg/dl (7-17); Calcium 8.8 mg/dl (8.4-10.2); Carbon Dioxide 28 mmol/L (22-30); Chloride 103 mmol/L (98-107); Estimated Creatinine Clearance 30 ml/min; Glucose 100 mg/dl (70-99); Magnesium 2.3 mg/dl (1.6-2.3); Phosphorus 2.6 mg/dl (2.5-4.5); Potassium 3.9 mmol/L (3.5-5.1); Sodium 136 mmol/L (135-145); eGFR 49.86
[2024-03-17 07:10] VITALS: BP 115/59
--- NOTE | 2024-03-17 07:29 | W.PN.HOSP.TC ---
Today's Communication/Plan
-
Medically stable for discharge pending placement
cont monitoring H&H renal function
cont pain control
IV iron infusion to convert to oral on discharge.
Assessment / Plan
Assessment / Plan
Physical Exam:
GENERAL: Alert , in no apparent distress
HEENT: pupils equal and reactive. Hard of hearing
NECK: Supple, no significant adenopathy.
CARDIAC: Regular rate and rhythm .
LUNGS: Clear breath sounds bilaterally, no acute respiratory distress, no wheezes/rales/rhonchi
ABDOMEN: Soft, without focal tenderness, no r/g, no cvat
SKIN: Warm and dry, skin intact
NEUROLOGICAL: Awake Alert Conversant Coherent
PSYCH: Calm Cooperative
83F from [place] here visiting great grandkids, hx CAD status post stent (2005), hypertension and history of skin cancer status post excision and lymph node dissection p/w with right hip pain following a mechanical fall from a standing height which
resulted in right comminuted angulated intratrochanteric hip fracture. Well appearing otherwise. VSS
PLAN:
# Rt Hip Fracture -
- Ortho eval appreciated s/p ORIF 03/14
-reportedly had normal cardiac cath on February 23 2024, patent stent and [place] vessels. Done in preparation for skin excision and lymph dissection for melanoma.
- pain control and antiemetics
- IVF support completed
- ASA DVT ppx celebrex pain control as per orthopedic
- continue daily losartan and statin
#Elevation in Cr mild MICHELLE
cont monitoring
encourage oral hydration
improving
#Anemia likely acute blood loss and possible hemodilution
#Severe Iron deficiency and likely anemia of chronic disease
transfuse 1PRBC with appropriate response noted goal Hgb>8
IV iron supplementation to convert to oral on discharge
#HTN
as above, continuing losartan and statin
#Lt Ft/ankle pain
likely ankle sprain
Lt Ankle and Foot X-ray no fracture or dislocation noted
#Underweight
BMI 18.3
Encourage oral intake
PT/OT appreciated Acute Rehab, PMR eval requested
DVT PPX - ASA as per orthopedic
Code Status - Full Code
Patient otherwise medically stable for discharge SNF vs Acute rehab pending placement
discussed with patient and patient's daughter Trish
I spent a total of 40 minutes with the patient or on the floor. More than 50% of this time involved counseling and coordination of care.
Anticipated Discharge: Within 24 hours
Subjective/Interval History
-
Date of Service: March 17, 2024
No acute distress appears well. Denies new acute issues at this time. Daughter Trish present during evaluation.
Objective Data
-
Labs:
Laboratory Results
03/17/24
04:38
WBC 9.1
Hgb 8.1 L
Hct 23.1 L
Plt Count 133
Sodium 136
Potassium 3.9
Chloride 103
Carbon Dioxide 28
BUN 32 H
Creatinine 1.1 H
Glucose 100 H
Calcium 8.8
Vital Signs:
Vital Signs
Temp Pulse Resp BP Pulse Ox
98.4 F 77 16 113/46 97
03/16/24 23:10 03/16/24 23:10 03/16/24 23:10 03/16/24 23:10 03/17/24 00:33
I&O
03/16/24 03/17/24 03/18/24
06:59 06:59 06:59
Intake Total 1820 / 1820 1370 / 1370
Output Total 350 / 350 400 / 400
Balance 1470 / 1470 970 / 970
[2024-03-17] MEDS: ASPIRIN 325 MG PO (07:55)
[2024-03-17] MEDS: CELEBREX 100 MG PO ×2 (07:55→19:53)
[2024-03-17] MEDS: CRESTOR 40 MG PO (07:56)
[2024-03-17] MEDS: PROTONIX 40 MG PO (07:56)
[2024-03-17] MEDS: ZETIA 10 MG PO (07:56)
[2024-03-17] MEDS: COZAAR 50 MG PO (07:56)
[2024-03-17] MEDS: COLACE PO (08:05)
[2024-03-17] MEDS: SENOKOT PO (08:05)
[2024-03-17] MEDS: FERRLECIT 110 MG IV (13:10)
[2024-03-17] MEDS: FLUSH (NSS) 2 FLUSH IV (13:11)
[2024-03-17] MEDS: ROXICODONE 5 MG PO (13:15)
--- NOTE | 2024-03-17 14:20 | CM ---
Case management following for discharge planning
Chart reviewed. Met with pt and her daughter
Accepted at [facility] for SNF
Called [facility] - spoke with Kaitlynn. Updates sent in Care Port for review
Daughter asked for information regarding cost for ambulance transport to both facility's. Obtained cost from Fredi at transport. Info provided to daughter.
PM&R consult pending
Plan - acute rehab vs SNF at discharge
[2024-03-17 15:10] VITALS: BP 96/63
[2024-03-17] MEDS: SENOKOT 17.2 MG PO (20:02)
[2024-03-17] MEDS: COLACE 100 MG PO (20:02)
[2024-03-17 23:00] VITALS: BP 107/48
[2024-03-18] MEDS: TYLENOL PO (00:03)
[2024-03-18] MEDS: TYLENOL 650 MG PO ×6 (03:54→23:01)
[2024-03-18 06:05] LABS: Blood Urea Nitrogen 30 mg/dl (7-17); Calcium 8.6 mg/dl (8.4-10.2); Carbon Dioxide 26 mmol/L (22-30); Chloride 104 mmol/L (98-107); Estimated Creatinine Clearance 30 ml/min; Glucose 104 mg/dl (70-99); Magnesium 2.4 mg/dl (1.6-2.3); Phosphorus 2.5 mg/dl (2.5-4.5); Potassium 3.9 mmol/L (3.5-5.1); Sodium 137 mmol/L (135-145); eGFR 49.86
[2024-03-18 06:10] LABS: Hematocrit 23.9 % (37.0-47.0); Hemoglobin 8.2 g/dL (12.0-16.0); Mean Corp Hgb Conc. 34.3 g/dL (33.0-37.0); Mean Corpuscular Hgb 29.4 pg (27.0-31.0); Mean Corpuscular Volume 85.7 fL (81.0-99.0); Mean Platelet Volume 11.2 fL (7.4-10.4); Platelet Count 174 10^3/uL (130-400); Red Blood Cell Count 2.79 10^6/uL (4.20-5.40); Red Cell Dist. Width 13.4 % (11.5-14.5); White Blood Cell Count 7.5 10^3/uL (4.8-10.8)
--- NOTE | 2024-03-18 07:22 | W.PN.HOSP.TC ---
Addendum entered and electronically signed by Hilaria Durham MD 03/18/24 17:54:
Discharge on hold, given distance ambulance unable to be scheduled today, per case mgmt, earliest transport date 03/21/24
Addendum entered and electronically signed by Hilaria Durham MD 03/18/24 13:35:
Plain radiographs of the knee (4V) obtained at [facility] 03/13/2024 Radiologist impression: Findings suggesting acute fracture of medial right patella mild displacement. Radiographs were reviewed by orthopedic (see orthopedic note
03/15/24) and no obvious evidence for acute right patella fracture was noted. Clinical examination also does not correlate with suggested patella fracture (ruled out).
Original Note:
Today's Communication/Plan
-
discharge
Assessment / Plan
Assessment / Plan
Physical Exam:
GENERAL: Alert , in no apparent distress
HEENT: pupils equal and reactive. Hard of hearing
NECK: Supple, no significant adenopathy.
CARDIAC: Regular rate and rhythm .
LUNGS: Clear breath sounds bilaterally, no acute respiratory distress, no wheezes/rales/rhonchi
ABDOMEN: Soft, without focal tenderness, no r/g, no cvat
SKIN: Warm and dry, skin intact
NEUROLOGICAL: Awake Alert Conversant Coherent
PSYCH: Calm Cooperative
83F from [place] here visiting great grandkids, hx CAD status post stent (2005), hypertension and history of skin cancer status post excision and lymph node dissection p/w with right hip pain following a mechanical fall from a standing height which
resulted in right comminuted angulated intratrochanteric hip fracture. Well appearing otherwise. VSS
PLAN:
# Rt Hip Fracture -
- Ortho eval appreciated s/p ORIF 03/14
-reportedly had normal cardiac cath on February 23 2024, patent stent and [place] vessels. Done in preparation for skin excision and lymph dissection for melanoma.
- pain control and antiemetics
- IVF support completed
- ASA DVT ppx pain control
- continue daily losartan and statin
#Elevation in Cr mild MICHELLE
cont monitoring
encourage oral hydration
improving
#Anemia likely acute blood loss and possible hemodilution
#Severe Iron deficiency and likely anemia of chronic disease
transfuse 1PRBC with appropriate response noted goal Hgb>8
IV iron supplementation converted to oral on discharge
#HTN
as above, continuing losartan and statin
#Lt Ft/ankle pain
likely ankle sprain
Lt Ankle and Foot X-ray no fracture or dislocation noted
#Underweight
BMI 18.3
Encourage oral intake
PT/OT appreciated Acute Rehab was accepted however per case mgmt patient family preferred SNF rehab facility that patient was also accepted to. Discharged accordingly per patient/family wishes
DVT PPX - ASA as per orthopedic
Code Status - Full Code
Medically stable for discharge SNF rehab with outpatient follow up recommendations.
discussed with patient and patient's daughter Trish
Total Time Preparing Discharge __50 minutes including examination of the patient, summary of the hospital stay, instructions for continuing care to all relevant caregivers; and preparation of discharge records, prescriptions, and referral
forms if necessary.
Anticipated Discharge: Today
Subjective/Interval History
-
Date of Service: March 18, 2024
No acute distress. Overall reports feeling well. Denies new acute issues at this time. Daughter Trish present during evaluation.
Objective Data
-
Labs:
Laboratory Results
03/18/24
04:32
WBC 7.5
Hgb 8.2 L
Hct 23.9 L
Plt Count 174 D
Sodium 137
Potassium 3.9
Chloride 104
Carbon Dioxide 26
BUN 30 H
Creatinine 1.1 H
Glucose 104 H
Calcium 8.6
Vital Signs:
Vital Signs
Temp Pulse Resp BP Pulse Ox
97.7 F 84 14 107/48 99
03/17/24 23:00 03/17/24 23:00 03/17/24 23:00 03/17/24 23:00 03/17/24 23:00
I&O
03/17/24 03/18/24 03/19/24
06:59 06:59 06:59
Intake Total 1370 / 1370 410 / 410
Output Total 400 / 400 300 / 300
Balance 970 / 970 110 / 110
[2024-03-18 07:41] VITALS: BP 134/63
[2024-03-18] MEDS: ASPIRIN 325 MG PO (08:58)
[2024-03-18] MEDS: CRESTOR 40 MG PO (08:58)
[2024-03-18] MEDS: COLACE 100 MG PO ×2 (08:58→19:50)
[2024-03-18] MEDS: ZETIA 10 MG PO (09:00)
[2024-03-18] MEDS: COZAAR 50 MG PO (09:00)
[2024-03-18] MEDS: CELEBREX PO (09:00)
[2024-03-18] MEDS: SENOKOT 17.2 MG PO (09:00)
[2024-03-18] MEDS: PROTONIX 40 MG PO (09:01)
[2024-03-18] MEDS: ROXICODONE 5 MG PO (09:05)
--- NOTE | 2024-03-18 10:41 | CM ---
Addendum entered by Charity Francois 03/18/24 14:59:
Unable to arrange transport for today due to location/staffing per Fredi, community coordinator
Can arrange transport for Thursday
Discussed with pt and daughter at bedside - report understand and daughter prefers pt be transported via ambulance
Nara crouch [facility] aware - can accept Thursday
Dr Durham aware
Plan - transport to [facility] Wednesday 03/21
R - [phone], ext [phone]
F - [phone]
Addendum entered by Charity Francois 03/18/24 12:32:
Received call from Kanika at [facility] - can accept tomorrow
Discussed with pt and family - family prefers [facility]
Called [facility] - spoke with Kaitlynn
Can accept today - pt agreeable
Dr Durham made aware
Transport to be arranged
Plan - transport to [facility]
Original Note:
Medically ready for discharge
Called and LM with Kanika at [facility] - regarding bed availability
[2024-03-18 11:30] VITALS: BP 109/48; PULSE 87; O2SAT 98
[2024-03-18] MEDS: FEOSOL 325 MG PO (13:14)
[2024-03-18 15:08] VITALS: BP 119/58
[2024-03-18 16:08] VITALS: BP 107/63; BP 152/61; PULSE 94; O2SAT 99
--- NOTE | 2024-03-18 16:22 | CON.MD ---
Documented by User: Shanti Brambila PA-C 03/18/24 17:09
Consultation - Medical
-
Referral: Hilaria Mcdonnell
Chief Complaint:�Ambulatory Dysfunction
�
History of Present Illness:��83 year old Female from [place] visiting family with PMH of ( CAD status post stent (2005), hypertension and history of skin cancer status post excision and lymph node dissection) presented to the ED with right hip pain
following a mechanical fall from a standing height resulting in right comminuted angulated intratrochanteric hip fracture. She is s/p ORIF with Dr. Shepard on 03/14/2024
Past Medical History:��CAD status post stent (2005), hypertension and history of skin cancer status post excision and lymph node dissection)
Procedure History:��cardiac stenting, skin excision and lymph node dissection, right ORIF
Family History:��type 1 DM-sister���
�
Social History:��
Functional Level Premorbidly:�Independent with all activities��
Current Functional Level : Bed mobility�supine to sit�supervision, sit to stand�min assist, ambulated 20 feet to and from bedroom with rolling walker and minimal assistance. Grooming, toileting�min assist, lower extremity self-care�dependent,
toilet transfer�min assist, bed mobility�supervision,
Tobacco:�Denies all��
Alcohol:�Denies��
Drug use:�Denies��
�
Lives With:��alone
24-hour assistance available:�
Number of floors:�One-story home
# steps to enter:��
Driving:�Yes
Occupation:��retired
�
Allergies:��
Allergy/AdvReac Type Severity Reaction Status Date / Time
No Known Allergies Allergy Unverified 03/13/24 18:52
�
Review of Systems:��
Constitutional: (x) abNormal _fatigue
Eye: (x)
Ear/Nose/Throat: (x) Normal _
Respiratory: (x) Normal _
Cardiovascular: (x) Normal _
Gastrointestinal: (x) Normal _
Genitourinary: (x) Normal _
Musculoskeletal: (x) right hip pain, s/p orif
Integumentary: (x) Normal _
Neurologic: (x)
Psychiatric: (x) Normal _
Endocrine: (x) Normal _
Hematologic/Lymphatic: (x)
Allergic/Immunologic: (x) Normal _
�
Medications:��
Active Current Visit Medication List
Category Date Time Status
Acetaminophen [Tylenol] Med 03/14/24 00:00 Active
650 mg PO Q4HWA
Aspirin Med 03/14/24 18:00 Active
325 mg PO DAILY
Docusate Sodium [Colace] Med 03/13/24 22:04 Active
100 mg PO BID
Ezetimibe [Zetia] Med 03/14/24 08:00 Active
10 mg PO DAILY
Ferrous Sulfate [Feosol] Med 03/18/24 13:00 Active
325 mg PO DAILY
Flush (0.9% Sodium Chloride) [Flush (Nss)] Med 03/13/24 22:00 Active
See Dose Instructions IV PER PROTOCOL
HYDROmorphone [Dilaudid] Med 03/13/24 21:34 Active
0.25 mg IV Q1HPRN PRN
Losartan [Cozaar] Med 03/14/24 08:00 Active
50 mg PO DAILY
Magnesium Hydroxide [Milk of Magnesia] Med 03/13/24 22:04 Active
30 ml PO DAILYPRN PRN
Ondansetron Injectable [Zofran] Med 03/13/24 22:04 Active
4 mg IV Q6HPRN PRN
Oxycodone [Roxicodone] Med 03/14/24 21:07 Active
5 mg PO Q4HPRN PRN
Pantoprazole [Protonix] Med 03/15/24 16:00 Active
40 mg PO DAILY
Rosuvastatin Calcium [Crestor] Med 03/14/24 08:00 Active
40 mg PO DAILY
Sennosides [Senokot] Med 03/13/24 22:04 Active
17.2 mg PO BID
Tamsulosin [Flomax] Med 03/13/24 22:04 Active
0.4 mg PO DAILYPRN PRN
�
Vitals:��
Temp Pulse Resp BP Pulse Ox
98.8 F 95 17 119/58 97
03/18/24 15:08 03/18/24 15:08 03/18/24 15:08 03/18/24 15:08 03/18/24 15:08
Height 5 ft 4 in
Actual Weight 48.444 kg
Body Mass Index (BMI) 18.3 �
Physical Exam:��
General Appearance/Observation: Well-developed, well-nourished individual in no apparent distress.��
Pain/Comfort Assessment: �
Mood/Affect: Appropriate, pleasant��
Integumentary/Operative Site:��right lateral hip incision, upper thigh and bilateral aspect of right knee with dressing.
Pressure Ulcer evaluation: absent over heels��
Eyes: Conjunctiva/Lids: normal���� Pupils: pupils equal round and reactive to light and Accommodation��
Ears/Nose/Throat: oral mucosa moist,� throat clear.�������������Lips/Teeth/Gums: normal��
Neck: No muscle spasm or tenderness��
Cardiovascular: Heart: regular, no murmur��
Pulses: dorsalis pedis 2+ bilaterally��
Respiratory: Respiratory Effort/Chest Expansion: normal.�������Auscultation: Clear to auscultation bilaterally��
Gastrointestinal: abdomen not tender, no distension, normal abdominal bowel sounds
Genitourinary: No Tilley��
Extremities:�Edema: mild upper right thigh�Cyanosis: None�Trophic�changes: None
��
Neurology Exam:
Orientation: Alert, Oriented to self, Time, Place��
Memory: Intact for immediate medical concerns
Comprehension: Intact
Two step command: Intact
Naming: Intact
Cranial Nerves:
CNII:�Pupillary light reflex: Intact����Visual Field:NT
CN III, IV, : Extraocular muscles: Intact��
CN V:�Facial Sensation�at�Forehead: Intact ,�Maxilla: Intact,�Mandible: Intact
CN VII:�Facial movement: Symmetric
CN VIII:�Hearing: [place]
CN IX/X:�Speech & swallow: Normal,�position of Uvula: Midline
CN XI:�Shoulder shrug: Symmetric
Sensory:
Light touch: Intact in bilateral upper and lower extremities, no extinction to double simultaneous stimulation
�
Reflexes:
Biceps: 2+ bilaterally
Brachioradialis: 2+ bilaterally
Triceps: 2+ bilaterally
Patellar: absent bilaterally
Achilles: absent bilaterally
Babinski: Downgoing bilaterally
Mg: Negative bilaterally
Cerebellar: Dysmetria/Ataxia: None��
Musculoskeletal: Motor: (Manual muscle scale 0-5)��
Muscle SA EF WE EE FF FA HF KE DF EHL PF
Right� 5 5 5 5 1 2 5 5 5
Left 5 5 5 5 5 5 5 5 5
�
Tone: Normal in all extremities��
Range of Motion: Passively within normal limits in all extremities, deferred RLE due to surgery��
�
Lab Results:��
Labs
WBC 7.5 10^3/uL (4.8-10.8) 03/18/24 04:32
RBC 2.79 10^6/uL (4.20-5.40) L 03/18/24 04:32
Hgb 8.2 g/dL (12.0-16.0) L 03/18/24 04:32
Hct 23.9 % (37.0-47.0) L 03/18/24 04:32
MCV 85.7 fL (81.0-99.0) 03/18/24 04:32
MCH 29.4 pg (27.0-31.0) 03/18/24 04:32
MCHC 34.3 g/dL (33.0-37.0) 03/18/24 04:32
RDW 13.4 % (11.5-14.5) 03/18/24 04:32
Plt Count 174 10^3/uL (130-400) D 03/18/24 04:32
MPV 11.2 fL (7.4-10.4) H 03/18/24 04:32
Abs Immat Gran (auto) 0.1 10^3/uL (0-0.05) H 03/13/24 21:04
Absolute Neuts (auto) 12.3 10^3/uL (1.4-6.5) H 03/13/24 21:04
Absolute Lymphs (auto) 0.9 10^3/uL (1.2-3.4) L 03/13/24 21:04
Absolute Monos (auto) 0.9 10^3/uL (0.1-0.6) H 03/13/24 21:04
Absolute Eos (auto) 0.0 10^3/uL (0-0.7) 03/13/24 21:04
Absolute Basos (auto) 0.0 10^3/uL (0-0.2) 03/13/24 21:04
Immature Gran % 0.6 % (0-0.5) H 03/13/24 21:04
Neutrophils % 86.2 % (42.2-75.2) H 03/13/24 21:04
Lymphocytes % 6.6 % (20.5-51.1) L 03/13/24 21:04
Monocytes % 6.1 % (1.7-9.3) 03/13/24 21:04
Eosinophils % 0.2 % (0-6) 03/13/24 21:04
Basophils % 0.3 % (0-2) 03/13/24 21:04
Nucleated RBC % 0 % 03/13/24 21:04
Sodium 137 mmol/L (135-145) 03/18/24 04:32
Potassium 3.9 mmol/L (3.5-5.1) 03/18/24 04:32
Chloride 104 mmol/L (98-107) 03/18/24 04:32
Carbon Dioxide 26 mmol/L (22-30) 03/18/24 04:32
BUN 30 mg/dl (7-17) H 03/18/24 04:32
Creatinine 1.1 mg/dL (0.6-1.0) H 03/18/24 04:32
Estimated Creat Clear 30 ml/min 03/18/24 04:32
eGFR 49.86 03/18/24 04:32
Glucose 104 mg/dl (70-99) H 03/18/24 04:32
Calcium 8.6 mg/dl (8.4-10.2) 03/18/24 04:32
Phosphorus 2.5 mg/dl (2.5-4.5) 03/18/24 04:32
Magnesium 2.4 mg/dl (1.6-2.3) H 03/18/24 04:32
Iron 27 ug/dl (37-170) L 03/16/24 04:57
TIBC 169 ug/dl (265-497) L 03/16/24 04:57
% Saturation 15 % (20-50) L 03/16/24 04:57
Total Bilirubin 0.9 mg/dl (0.2-1.3) 03/13/24 21:04
AST 61 U/L (14-36) H 03/13/24 21:04
ALT 51 U/L (0-35) H 03/13/24 21:04
Alkaline Phosphatase 57 U/L (38-126) 03/13/24 21:04
Total Protein 5.6 g/dl (6.3-8.2) L 03/13/24 21:04
Albumin 3.4 g/dl (3.5-5.0) L 03/13/24 21:04
Vitamin B12 767 pg/ml (239-931) 03/15/24 04:40
Folate 6.7 ng/ml (2.76-20) 03/15/24 04:40
Blood Type O POS 03/13/24 21:08
Blood Type Confirm O POS 03/13/24 21:35
Antibody Screen Negative (Negative) 03/13/24 21:08
Crossmatch IS Only See Detail 03/13/24 21:08
Diagnostic Results: As per HPI�
�
Assessment �83 year old Female with PMH of ( CAD status post stent (2005), hypertension and history of skin cancer status post excision and lymph node dissection) s/p fall resulting in right comminuted angulated intratrochanteric hip fracture.
Now post right ORIF with Dr. Shepard on 03/14/2024
�
Plan�: PT/OT to increase independence with ADLs, improve balance, coordination, endurance, strength, mobility, decreased burden of care on others and family education.�
Right Hip Gamma Nail 03/14/[address] Shepard.
WBAT RLE with walker for assistance. PT/OT.
ASA 325mg once daily x 4 weeks for DVT ppx.
Ambulatory Dysfunction: Cont PT/OT
HTN: losartan 50 mg qd
HLD: Zetia 10 mg daily, rosuvastatin 40 mg daily
Severe Iron Def Anemia:����Post-op. Hgb 8.2 on 03/18 after 1unit PRBC. Continue to monitor. IV iron infusion
Underweight: BMI 18.3. Encourage oral intake,. Consider nutrition consult
MICHELLE: encourage oral hydration. Celebrex discontinued.
Psych: Psychology consult.� Monitor mood, adjust medications as needed.��
Skin: monitor for pressure sores/rashes/lesions.��
FEN:�Regular diet.��
Pain: acetaminophen 650 mg every 4 hours as needed, Dilaudid 0.25 mg IV every hour as needed, oxycodone 5 mg every 4 as needed
nausea: Zofran 4 mg IV every 6 hours as needed
Bowel: Colace and Senna, PRN bisacodyl.��
Bladder: Time void, PVRs, PRN straight cath.�Flomax 0.4mg prn
GI Prophylaxis: Pantoprazole 40 mg daily
DVT Prophylaxis: mechanical
Pulmonary: Incentive spirometry��
Safety: Continue to reinforce assistance with all transfers.��
Code Status:� Full code �
Dispo�(date/plan/equipment needs): Home with family care.��
Functional and Medical Goals:�Modified Independent with ADL�s, ambulation, transfers��
Discharge Destination: acute inpatient rehabilitation
Summary recommendation: Patient would benefit from acute inpatient rehabilitation for PT/OT to increase independence with ADLs, improve balance, coordination, endurance, strength, mobility, decreased burden of care on others and family education.�
Ambulatory Dysfunction, S/P ORIF: Cont PT/OT
HTN: losartan 50 mg qd
Pain: acetaminophen 650 mg every 4 hours as needed, oxycodone 5 mg every 4 as needed, Dilaudid IV- all discharge meds have to be converted to PO
Bowel: Colace and Senna, PRN bisacodyl.��
Bladder: Time void, PVRs, PRN straight cath.�Flomax 0.4mg prn
GI Prophylaxis: Pantoprazole 40 mg daily
DVT Prophylaxis: mechanical and ASA 321mg qd per ortho
Pulmonary: Incentive spirometry��
Thank you for allowing me to care for your patient. Please contact me with any questions or concerns.

Documented by User: Giancarlo Chase MD 03/18/24 20:53
Consultation - Medical
-
Referral: Hilaria Mcdonnell
Chief Complaint:�Ambulatory Dysfunction
�
History of Present Illness:��83 year old Female from [place] visiting family with PMH of ( CAD status post stent (2005), hypertension and history of skin cancer status post excision and lymph node dissection) presented to the ED with right hip pain
following a mechanical fall from a standing height resulting in right comminuted angulated intratrochanteric hip fracture. She is s/p ORIF with Dr. Shepard on 03/14/2024
Past Medical History:��CAD status post stent (2005), hypertension and history of skin cancer status post excision and lymph node dissection)
Procedure History:��cardiac stenting, skin excision and lymph node dissection, right ORIF
Family History:��type 1 DM-sister���
�
Social History:��
Functional Level Premorbidly:�Independent with all activities��
Current Functional Level : Bed mobility�supine to sit�supervision, sit to stand�min assist, ambulated 20 feet to and from bedroom with rolling walker and minimal assistance. Grooming, toileting�min assist, lower extremity self-care�dependent,
toilet transfer�min assist, bed mobility�supervision,
Tobacco:�Denies all��
Alcohol:�Denies��
Drug use:�Denies��
�
Lives With:��alone
24-hour assistance available:�[place] of floors:�One-story home [place]
# steps to enter:��0
Driving:�Yes
Occupation:��retired
�
Allergies:��
Allergy/AdvReac Type Severity Reaction Status Date / Time
No Known Allergies Allergy Unverified 03/13/24 18:52
�
Review of Systems:��
Constitutional: (x) abNormal _fatigue
Eye: (x)
Ear/Nose/Throat: (x) Normal _
Respiratory: (x) Normal _
Cardiovascular: (x) Normal _
Gastrointestinal: (x) Normal _
Genitourinary: (x) Normal _
Musculoskeletal: (x) right hip pain, s/p orif
Integumentary: (x) Normal _
Neurologic: (x)
Psychiatric: (x) Normal _
Endocrine: (x) Normal _
Hematologic/Lymphatic: (x)
Allergic/Immunologic: (x) Normal _
�
Medications:��
Active Current Visit Medication List
Category Date Time Status
Acetaminophen [Tylenol] Med 03/14/24 00:00 Active
650 mg PO Q4HWA
Aspirin Med 03/14/24 18:00 Active
325 mg PO DAILY
Docusate Sodium [Colace] Med 03/13/24 22:04 Active
100 mg PO BID
Ezetimibe [Zetia] Med 03/14/24 08:00 Active
10 mg PO DAILY
Ferrous Sulfate [Feosol] Med 03/18/24 13:00 Active
325 mg PO DAILY
Flush (0.9% Sodium Chloride) [Flush (Nss)] Med 03/13/24 22:00 Active
See Dose Instructions IV PER PROTOCOL
HYDROmorphone [Dilaudid] Med 03/13/24 21:34 Active
0.25 mg IV Q1HPRN PRN
Losartan [Cozaar] Med 03/14/24 08:00 Active
50 mg PO DAILY
Magnesium Hydroxide [Milk of Magnesia] Med 03/13/24 22:04 Active
30 ml PO DAILYPRN PRN
Ondansetron Injectable [Zofran] Med 03/13/24 22:04 Active
4 mg IV Q6HPRN PRN
Oxycodone [Roxicodone] Med 03/14/24 21:07 Active
5 mg PO Q4HPRN PRN
Pantoprazole [Protonix] Med 03/15/24 16:00 Active
40 mg PO DAILY
Rosuvastatin Calcium [Crestor] Med 03/14/24 08:00 Active
40 mg PO DAILY
Sennosides [Senokot] Med 03/13/24 22:04 Active
17.2 mg PO BID
Tamsulosin [Flomax] Med 03/13/24 22:04 Active
0.4 mg PO DAILYPRN PRN
�Vitals:��
Temp Pulse Resp BP Pulse Ox
98.8 F 95 17 119/58 97
03/18/24 15:08 03/18/24 15:08 03/18/24 15:08 03/18/24 15:08 03/18/24 15:08
Height 5 ft 4 in
Actual Weight 48.444 kg
Body Mass Index (BMI) 18.3 �
Physical Exam:��
General Appearance/Observation: Well-developed, well-nourished individual in no apparent distress.��
Pain/Comfort Assessment: Mild hip pain controlled with medications
Mood/Affect: Appropriate, pleasant��
Integumentary/Operative Site:��right lateral hip incision, upper thigh and bilateral aspect of right knee with dressing.
Pressure Ulcer evaluation: absent over heels��
Eyes: Conjunctiva/Lids: normal���� Pupils: pupils equal round and reactive to light and Accommodation��
Ears/Nose/Throat: oral mucosa moist,� throat clear.�������������Lips/Teeth/Gums: normal��
Neck: No muscle spasm or tenderness��
Cardiovascular: Heart: regular, no murmur��
Pulses: dorsalis pedis 2+ bilaterally��
Respiratory: Respiratory Effort/Chest Expansion: normal.�������Auscultation: Clear to auscultation bilaterally��
Gastrointestinal: abdomen not tender, no distension, normal abdominal bowel sounds
Genitourinary: No [place]��
Extremities:�Edema: mild upper right thigh�Cyanosis: None�Trophic�changes: None
��
Neurology Exam:
Orientation: Alert, Oriented to self, Time, Place��
Memory: Intact for immediate medical concerns
Comprehension: Intact
Two step command: Intact
Naming: Intact
Cranial Nerves:
CNII:�Pupillary light reflex: Intact����Visual Field:NT
CN III, IV, : Extraocular muscles: Intact��
CN V:�Facial Sensation�at�Forehead: Intact ,�Maxilla: Intact,�Mandible: Intact
CN VII:�Facial movement: Symmetric
CN VIII:�Hearing: [place]
CN IX/X:�Speech & swallow: Normal,�position of Uvula: Midline
CN XI:�Shoulder shrug: Symmetric
Sensory:
Light touch: Intact in bilateral upper and lower extremities, no extinction to double simultaneous stimulation
�
Reflexes:
Biceps: 2+ bilaterally
Brachioradialis: 2+ bilaterally
Triceps: 2+ bilaterally
Patellar: absent bilaterally
Achilles: absent bilaterally
Babinski: Downgoing bilaterally
Mg: Negative bilaterally
Cerebellar: Dysmetria/Ataxia: None��
Musculoskeletal: Motor: (Manual muscle scale 0-5)��
Muscle SA EF WE EE FF FA HF KE DF EHL PF
Right� 5 5 5 5 5 1 2 5 5 5
Left 5 5 5 5 5 5 5 5 5 5
�
Tone: Normal in all extremities��
Range of Motion: Passively within normal limits in all extremities, deferred RLE due to surgery��
�
Lab Results:��
Labs
WBC 7.5 10^3/uL (4.8-10.8) 03/18/24 04:32
RBC 2.79 10^6/uL (4.20-5.40) L 03/18/24 04:32
Hgb 8.2 g/dL (12.0-16.0) L 03/18/24 04:32
Hct 23.9 % (37.0-47.0) L 03/18/24 04:32
MCV 85.7 fL (81.0-99.0) 03/18/24 04:32
MCH 29.4 pg (27.0-31.0) 03/18/24 04:32
MCHC 34.3 g/dL (33.0-37.0) 03/18/24 04:32
RDW 13.4 % (11.5-14.5) 03/18/24 04:32
Plt Count 174 10^3/uL (130-400) D 03/18/24 04:32
MPV 11.2 fL (7.4-10.4) H 03/18/24 04:32
Abs Immat Gran (auto) 0.1 10^3/uL (0-0.05) H 03/13/24 21:04
Absolute Neuts (auto) 12.3 10^3/uL (1.4-6.5) H 03/13/24 21:04
Absolute Lymphs (auto) 0.9 10^3/uL (1.2-3.4) L 03/13/24 21:04
Absolute Monos (auto) 0.9 10^3/uL (0.1-0.6) H 03/13/24 21:04
Absolute Eos (auto) 0.0 10^3/uL (0-0.7) 03/13/24 21:04
Absolute Basos (auto) 0.0 10^3/uL (0-0.2) 03/13/24 21:04
Immature Gran % 0.6 % (0-0.5) H 03/13/24 21:04
Neutrophils % 86.2 % (42.2-75.2) H 03/13/24 21:04
Lymphocytes % 6.6 % (20.5-51.1) L 03/13/24 21:04
Monocytes % 6.1 % (1.7-9.3) 03/13/24 21:04
Eosinophils % 0.2 % (0-6) 03/13/24 21:04
Basophils % 0.3 % (0-2) 03/13/24 21:04
Nucleated RBC % 0 % 03/13/24 21:04
Sodium 137 mmol/L (135-145) 03/18/24 04:32
Potassium 3.9 mmol/L (3.5-5.1) 03/18/24 04:32
Chloride 104 mmol/L (98-107) 03/18/24 04:32
Carbon Dioxide 26 mmol/L (22-30) 03/18/24 04:32
BUN 30 mg/dl (7-17) H 03/18/24 04:32
Creatinine 1.1 mg/dL (0.6-1.0) H 03/18/24 04:32
Estimated Creat Clear 30 ml/min 03/18/24 04:32
eGFR 49.86 03/18/24 04:32
Glucose 104 mg/dl (70-99) H 03/18/24 04:32
Calcium 8.6 mg/dl (8.4-10.2) 03/18/24 04:32
Phosphorus 2.5 mg/dl (2.5-4.5) 03/18/24 04:32
Magnesium 2.4 mg/dl (1.6-2.3) H 03/18/24 04:32
Iron 27 ug/dl (37-170) L 03/16/24 04:57
TIBC 169 ug/dl (265-497) L 03/16/24 04:57
% Saturation 15 % (20-50) L 03/16/24 04:57
Total Bilirubin 0.9 mg/dl (0.2-1.3) 03/13/24 21:04
AST 61 U/L (14-36) H 03/13/24 21:04
ALT 51 U/L (0-35) H 03/13/24 21:04
Alkaline Phosphatase 57 U/L (38-126) 03/13/24 21:04
Total Protein 5.6 g/dl (6.3-8.2) L 03/13/24 21:04
Albumin 3.4 g/dl (3.5-5.0) L 03/13/24 21:04
Vitamin B12 767 pg/ml (239-931) 03/15/24 04:40
Folate 6.7 ng/ml (2.76-20) 03/15/24 04:40
Blood Type O POS 03/13/24 21:08
Blood Type Confirm O POS 03/13/24 21:35
Antibody Screen Negative (Negative) 03/13/24 21:08
Crossmatch IS Only See Detail 03/13/24 21:08
Diagnostic Results: As per HPI�
�
Assessment �83 year old Female with PMH of ( CAD status post stent (2005), hypertension and history of skin cancer status post excision and lymph node dissection) s/p fall resulting in right comminuted angulated intratrochanteric hip fracture.
Now post right ORIF with Dr. Shepard on 03/14/2024
�
Plan�: PT/OT to increase independence with ADLs, improve balance, coordination, endurance, strength, mobility, decreased burden of care on others and family education.�
Right Hip Gamma Nail 03/14/[address] Shepard.
WBAT RLE with walker for assistance. PT/OT.
ASA 325mg once daily x 4 weeks for DVT ppx.
Ambulatory Dysfunction: Cont PT/OT
HTN: losartan 50 mg qd
HLD: Zetia 10 mg daily, rosuvastatin 40 mg daily
Severe Iron Def Anemia:����Post-op. Hgb 8.2 on 03/18 after 1unit PRBC. Continue to monitor. IV iron infusion
Underweight: BMI 18.3. Encourage oral intake,. Consider nutrition consult
MICHELLE: encourage oral hydration. Celebrex discontinued.
Psych: Psychology consult.� Monitor mood, adjust medications as needed.��
Skin: monitor for pressure sores/rashes/lesions.��
FEN:�Regular diet.��
Pain: acetaminophen 650 mg every 4 hours as needed, Dilaudid 0.25 mg IV every hour as needed, oxycodone 5 mg every 4 as needed
nausea: Zofran 4 mg IV every 6 hours as needed
Bowel: Colace and Senna, PRN bisacodyl.��
Bladder: Time void, PVRs, PRN straight cath.�Flomax 0.4mg prn
GI Prophylaxis: Pantoprazole 40 mg daily
DVT Prophylaxis: mechanical
Pulmonary: Incentive spirometry��
Safety: Continue to reinforce assistance with all transfers.��
Code Status:� Full code �
Dispo�(date/plan/equipment needs): Home with family care.��
Functional and Medical Goals:�Modified Independent with ADL�s, ambulation, transfers��
Discharge Destination: acute inpatient rehabilitation
Summary recommendation: Patient would benefit from acute inpatient rehabilitation for PT/OT to increase independence with ADLs, improve balance, coordination, endurance, strength, mobility, decreased burden of care on others and family education.�
Ambulatory Dysfunction, S/P ORIF: Cont PT/OT
HTN: losartan 50 mg qd
Pain: acetaminophen 650 mg every 4 hours as needed, oxycodone 5 mg every 4 as needed, Dilaudid IV- all discharge meds have to be converted to PO
Bowel: Colace and Senna, PRN bisacodyl.��
Bladder: Time void, PVRs, PRN straight cath.�Flomax 0.4mg prn
GI Prophylaxis: Pantoprazole 40 mg daily
DVT Prophylaxis: mechanical and ASA 321mg qd per ortho
Pulmonary: Incentive spirometry��
Thank you for allowing me to care for your patient. Please contact me with any questions or concerns.
Attending Statement:
I saw and examined the patient today. Reviewed care plan with patient, therapy, nursing, and physician assistant professor surgical technology. I agree with the above subjective and physical exam, and plan as documented by FREDY Brambila with adjustments made as necessary.
Patient seen with FREDY. Overall will benefit most from an acute inpatient rehabilitation program where she plans to go back to her daughter's house [place] accessible and then go to her home in [place] after that.
[2024-03-18] MEDS: SENOKOT PO (19:52)
[2024-03-18 23:44] VITALS: BP 134/60
[2024-03-19] MEDS: TYLENOL PO (04:18)
[2024-03-19] MEDS: ROXICODONE 5 MG PO (06:03)
--- NOTE | 2024-03-19 07:46 | W.PN.HOSP.TC ---
Today's Communication/Plan
-
pain control
PT/OT
pending ambulance transportation to [facility] rehab Mon 03/21
Assessment / Plan
Assessment / Plan
Physical Exam:
GENERAL: Alert , in no apparent distress
HEENT: pupils equal and reactive. Hard of hearing
NECK: Supple, no significant adenopathy.
CARDIAC: Regular rate and rhythm .
LUNGS: Clear breath sounds bilaterally, no acute respiratory distress, no wheezes/rales/rhonchi
ABDOMEN: Soft, without focal tenderness, no r/g, no cvat
SKIN: Warm and dry, skin intact
NEUROLOGICAL: Awake Alert Conversant Coherent
PSYCH: Calm Cooperative
83F from [place] here visiting [place], hx CAD status post stent (2005), hypertension and history of skin cancer status post excision and lymph node dissection p/w with right hip pain following a mechanical fall from a standing height which
resulted in right comminuted angulated intratrochanteric hip fracture. Well appearing otherwise. VSS
PLAN:
# Rt Hip Fracture -
- Ortho eval appreciated s/p ORIF 03/14
-reportedly had normal cardiac cath on February 23 2024, patent stent and [place] vessels. Done in preparation for skin excision and lymph dissection for melanoma.
- pain control and antiemetics
- IVF support completed
- ASA DVT ppx pain control
- continue daily losartan and statin
#Elevation in Cr mild MICHELLE
cont monitoring
encourage oral hydration
improving
#Anemia likely acute blood loss and possible hemodilution
#Severe Iron deficiency and likely anemia of chronic disease
transfuse 1PRBC with appropriate response noted goal Hgb>8
IV iron supplementation converted to oral on discharge
#HTN
as above, continuing losartan and statin
#Lt Ft/ankle pain
likely ankle sprain
Lt Ankle and Foot X-ray no fracture or dislocation noted
#Underweight
BMI 18.3
Encourage oral intake
PT/OT appreciated Acute Rehab was accepted however per case mgmt patient family preferred SNF rehab facility that patient was also accepted to. Discharged accordingly per patient/family wishes
DVT PPX - ASA as per orthopedic
Code Status - Full Code
Medically stable for discharge SNF rehab pending ambulance transport earliest scheduled Mon 03/21 due to distance
discussed with patient and patient's daughter Trish
I spent a total of 35 minutes with the patient or on the floor. More than 50% of this time involved counseling and coordination of care.
Anticipated Discharge: 24 - 48 hours
Subjective/Interval History
-
Date of Service: March 19, 2024
no acute distress. pain controlled at this time.
Objective Data
-
Vital Signs:
Vital Signs
Temp Pulse Resp BP Pulse Ox
98.3 F 92 16 134/60 98
03/18/24 23:44 03/18/24 23:44 03/18/24 23:44 03/18/24 23:44 03/18/24 23:44
I&O
03/18/24 03/19/24 03/20/24
06:59 06:59 06:59
Intake Total 410 / 410 840 / 840
Output Total 300 / 300
Balance 110 / 110 840 / 840
[2024-03-19 07:53] VITALS: BP 142/62
[2024-03-19] MEDS: SENOKOT PO ×2 (09:09→21:26)
[2024-03-19] MEDS: COLACE PO (09:09)
[2024-03-19] MEDS: TYLENOL 650 MG PO ×4 (09:09→21:23)
[2024-03-19] MEDS: CRESTOR 40 MG PO (09:10)
[2024-03-19] MEDS: PROTONIX 40 MG PO (09:12)
[2024-03-19] MEDS: ZETIA 10 MG PO (09:14)
[2024-03-19] MEDS: ASPIRIN 325 MG PO (09:14)
[2024-03-19] MEDS: COZAAR 50 MG PO (09:15)
[2024-03-19] MEDS: FEOSOL 325 MG PO (09:15)
[2024-03-19 16:03] VITALS: BP 113/47
[2024-03-19] MEDS: COLACE 100 MG PO (21:25)
[2024-03-19 22:31] VITALS: BP 129/60
[2024-03-20] MEDS: TYLENOL PO (01:00)
[2024-03-20] MEDS: TYLENOL 650 MG PO ×6 (04:21→23:12)
[2024-03-20] MEDS: ROXICODONE 5 MG PO (04:23)
[2024-03-20 07:12] LABS: Blood Urea Nitrogen 19 mg/dl (7-17); Calcium 9.1 mg/dl (8.4-10.2); Carbon Dioxide 28 mmol/L (22-30); Chloride 103 mmol/L (98-107); Estimated Creatinine Clearance 36 ml/min; Glucose 101 mg/dl (70-99); Magnesium 2.1 mg/dl (1.6-2.3); Phosphorus 2.2 mg/dl (2.5-4.5); Potassium 3.7 mmol/L (3.5-5.1); Sodium 138 mmol/L (135-145); eGFR > 60.00
--- NOTE | 2024-03-20 07:12 | W.PN.HOSP.TC ---
Today's Communication/Plan
-
Medically stable for discharge pending Ambulance set up Mon 03/21
Assessment / Plan
Assessment / Plan
Physical Exam:
GENERAL: Alert , in no apparent distress
HEENT: pupils equal and reactive. Hard of hearing
NECK: Supple, no significant adenopathy.
CARDIAC: Regular rate and rhythm .
LUNGS: Clear breath sounds bilaterally, no acute respiratory distress, no wheezes/rales/rhonchi
ABDOMEN: Soft, without focal tenderness, no r/g, no cvat
SKIN: Warm and dry, skin intact
NEUROLOGICAL: Awake Alert Conversant Coherent
PSYCH: Calm Cooperative
83F from [place] here visiting [place], hx CAD status post stent (2005), hypertension and history of skin cancer status post excision and lymph node dissection p/w with right hip pain following a mechanical fall from a standing height which
resulted in right comminuted angulated intratrochanteric hip fracture. Well appearing otherwise. VSS
PLAN:
# Rt Hip Fracture -
- Ortho eval appreciated s/p ORIF 03/14
-reportedly had normal cardiac cath on February 23 2024, patent stent and [place] vessels. Done in preparation for skin excision and lymph dissection for melanoma.
- pain control and antiemetics
- IVF support completed
- ASA DVT ppx pain control
- continue daily losartan and statin
#Elevation in Cr mild MICHELLE
cont monitoring
encourage oral hydration
improving
#Anemia likely acute blood loss and possible hemodilution
#Severe Iron deficiency and likely anemia of chronic disease
transfuse 1PRBC with appropriate response noted goal Hgb>8
IV iron supplementation converted to oral on discharge
Hgb significantly improved prior to discharge.
#HTN
as above, continuing losartan and statin
#Lt Ft/ankle pain
likely ankle sprain
Lt Ankle and Foot X-ray no fracture or dislocation noted
#Underweight
BMI 18.3
Encourage oral intake
#Mild Hypophosphatemia
neutraphos one day supplementation ordered
PT/OT appreciated Acute Rehab was accepted however per case mgmt patient family preferred SNF rehab facility that patient was also accepted to.
DVT PPX - ASA as per orthopedic
Code Status - Full Code
Medically stable for discharge SNF rehab pending ambulance transport earliest scheduled 03/21 due to distance (rehab facility in [place])
discussed with patient and patient's daughter Trish
I spent a total of 35 minutes with the patient or on the floor. More than 50% of this time involved counseling and coordination of care.
Anticipated Discharge: Within 24 hours
Subjective/Interval History
-
Date of Service: March 20, 2024
No acute distress. Overall reports feeling well. Denies new acute issues at this time.
Objective Data
-
Labs:
Laboratory Results
03/20/24
04:35
WBC Pending
Hgb Pending
Hct Pending
Plt Count Pending
Sodium 138
Potassium 3.7
Chloride 103
Carbon Dioxide 28
BUN 19 H
Creatinine 0.9
Glucose 101 H
Calcium 9.1
Vital Signs:
Vital Signs
Temp Pulse Resp BP Pulse Ox
98.6 F 86 20 129/60 99
03/19/24 22:31 03/19/24 22:31 03/19/24 22:31 03/19/24 22:31 03/19/24 22:31
I&O
03/19/24 03/20/24 03/21/24
06:59 06:59 06:59
Intake Total 840 / 840 1440 / 1440
Balance 840 / 840 1440 / 1440
[2024-03-20 08:02] LABS: Hematocrit 26.2 % (37.0-47.0); Hemoglobin 9.2 g/dL (12.0-16.0); Mean Corp Hgb Conc. 35.1 g/dL (33.0-37.0); Mean Corpuscular Hgb 30.8 pg (27.0-31.0); Mean Corpuscular Volume 87.6 fL (81.0-99.0); Mean Platelet Volume 10.5 fL (7.4-10.4); Platelet Count 244 10^3/uL (130-400); Red Blood Cell Count 2.99 10^6/uL (4.20-5.40); Red Cell Dist. Width 13.1 % (11.5-14.5); White Blood Cell Count 8.2 10^3/uL (4.8-10.8)
[2024-03-20 08:24] VITALS: BP 125/53
[2024-03-20] MEDS: FEOSOL 325 MG PO (08:26)
[2024-03-20] MEDS: ASPIRIN 325 MG PO (08:27)
[2024-03-20] MEDS: SENOKOT PO (08:27)
[2024-03-20] MEDS: COLACE 100 MG PO (08:27)
[2024-03-20] MEDS: PROTONIX 40 MG PO (08:27)
[2024-03-20] MEDS: ZETIA 10 MG PO (08:31)
[2024-03-20] MEDS: CRESTOR 40 MG PO (08:31)
[2024-03-20] MEDS: COZAAR 50 MG PO (08:31)
[2024-03-20 10:12] VITALS: BP 127/57; PULSE 99
[2024-03-20] MEDS: NEUTRA-PHOS POWDER PACKET 250 MG PO ×3 (12:22→22:45)
[2024-03-20 15:00] VITALS: BP 106/61
[2024-03-20] MEDS: SENOKOT-S 1 TABLET PO (21:00)
[2024-03-20 22:35] VITALS: BP 126/60
[2024-03-21] MEDS: TYLENOL 650 MG PO ×2 (04:22→07:38)
--- NOTE | 2024-03-21 07:02 | W.DCSUMMARY ---
Discharge Summary
Discharge Data
Date of Admission: 03/13/24
Date of Discharge: 03/21/24
-
Pending Results: No
Discharge Plan
-
Patient Disposition: Prison/SNF
Discharge Diagnosis/Procedures: Rt Hip Fracture status post right hip cephalomedullary nail fixation
Mild Acute Kidney Injury Resolved
Anemia likely acute blood loss post-procedure
Severe Iron deficiency and likely anemia of chronic disease
HTN
Underweight BMI 18.3
Condition: Fair
Diet: Regular
Activity: With assistance, As tolerated and With Walker
Driving Restrictions: Not until seen by your Dr
Blood Work: Repeat CBC and BMP with a primary care provider in 1 week of discharge.
Repeat Iron studies in 1 month of discharge with a primary care provider.
Other Services: PT and OT
Wound Care: Surgical dressing to remain in place 2 weeks post-op (03/15/24-03/28/24)
Skin clip removal at 2 weeks post-op (03/28/24)
Activity Restrictions/Additional Instructions:
Follow up with primary care provider in 1 week of discharge. Follow up with Orthopedic in 2 weeks of discharge.
Tylenol prescribed as needed for pain, fever, or headache.
Aspirin 325 mg daily has been prescribed for dvt prophylaxis after recent orthopedic procedure. Continue through April 10, 2024 to complete the recommended 28 days. Resume your home 81 mg aspirin daily after completing 325 mg regimen.
Protonix has been prescribed for GI prophylaxis while on Aspirin 325 mg daily. Ok to discontinue when 325 mg daily regimen completes as above.
Iron supplementation prescribed for Iron deficiency anemia.
Oxycodone has been prescribed as needed for moderate severe pain.
Laxatives have been prescribed prophylaxis for opiate induced constipation.
Please take medications as prescribed/recommended and follow up with primary care provider and/or other healthcare provider involved in your care for refills and/or further adjustment to your medication regimen as necessary.
Referrals:
NONE,* [Family Provider] -
Chintan Shepard MD [Active] - in one to two weeks
Prescriptions:
New
oxycodone 5 mg Tablet
5 mg PO BIDPRN PRN (Reason: moderate severe pain) Qty: 10 0RF
acetaminophen 325 mg Tablet
650 mg PO Q6HPRN PRN (Reason: pain/fever/headache) Qty: 30 0RF
aspirin 325 mg Tablet
325 mg PO DAILY 23 Days Qty: 23 0RF
Rx Instructions:
April 10, 2024 last day then resume prior home 81 mg daily Aspirin.
pantoprazole 40 mg Tablet,Delayed Release (Dr/Ec)
40 mg PO DAILY 23 Days Qty: 23 0RF
Rx Instructions:
GI prophylaxis while on high dose aspirin dvt prophylaxis. Ok to discontinue when of 325 mg Aspirin.
ferrous sulfate [FeroSul] 325 mg (65 mg iron) Tablet
325 mg PO DAILY 30 Days Qty: 30 0RF
polyethylene glycol 3350 [Miralax] 17 gram/dose powder
4 g PO DAILY PRN (Reason: constipation) Qty: 119 0RF
sennosides-docusate sodium [Senna with Docusate Sodium] 8.6-50 mg tablet
2 tab-cap PO BID Qty: 30 0RF
Rx Instructions:
Hold if diarrhea or off opiate pain meds and bowel movements regular
Continued
losartan 50 mg Tablet
50 mg PO DAILY
ezetimibe 10 mg Tablet
10 mg PO DAILY
rosuvastatin 40 mg Tablet
40 mg PO DAILY
Held
aspirin
81 mg PO DAILY
Hold Instructions: resume when Aspirin 325 mg dvt prophylaxis 28 days completes.
Discharge Date and Time
Print Language: MONGOLIAN
[2024-03-21] MEDS: ZETIA 10 MG PO (07:38)
[2024-03-21] MEDS: PROTONIX 40 MG PO (07:38)
[2024-03-21] MEDS: ASPIRIN 325 MG PO (07:38)
[2024-03-21] MEDS: CRESTOR 40 MG PO (07:38)
[2024-03-21] MEDS: COZAAR 50 MG PO (07:39)
[2024-03-21] MEDS: FEOSOL 325 MG PO (07:39)
[2024-03-21] MEDS: SENOKOT-S 1 TABLET PO (07:39)
[2024-03-21 08:15] VITALS: BP 133/68
--- NOTE | 2024-03-21 08:36 | W.PN.HOSP.TC ---
Today's Communication/Plan
-
Discharge
Assessment / Plan
Assessment / Plan
83-year-old female admitted for right hip fracture and acute kidney injury. Creatinine stable. Anemia secondary to hemodilution/acute blood loss secondary to surgery stable.
On examination patient is awake alert denies any complaints
Cardiovascular system S1-S2 appreciated
Chest clear to auscultation
Abdomen soft and nontender
Right hip with no bleeding, dressing intact
No pedal edema noted
# Rt Hip Fracture -
-s/p ORIF 03/14
-Reportedly had normal cardiac cath on February 23 2024, patent stent and c[place]il dehe vessels. Done in preparation for skin excision and lymph dissection for melanoma.
-ASA DVT ppx pain control
#Elevation in Cr mild MICHELLE
Better
#Anemia likely acute blood loss and possible hemodilution
#Severe Iron deficiency and likely anemia of chronic disease
transfused 1PRBC with appropriate response noted goal Hgb>8
IV iron supplementation converted to oral on discharge
Hgb significantly improved
#HTN
losartan and statin
#Lt Ft/ankle pain
likely ankle sprain
Lt Ankle and Foot X-ray no fracture or dislocation noted
#Underweight
BMI 18.3
Encourage oral intake
#Mild Hypophosphatemia
neutraphos one day supplementation completed
PT/OT appreciated Acute Rehab was accepted however per case mgmt patient family preferred SNF rehab facility that patient was also accepted to.
DVT PPX - ASA as per orthopedic
Code Status - Full Code
Discussed with case management
Will proceed with proposed discharge.
Anticipated Discharge: Today
Subjective/Interval History
-
Date of Service: March 21, 2024
Objective Data
-
Vital Signs:
Vital Signs
Temp Pulse Resp BP Pulse Ox
98.5 F 98 14 133/68 98
03/21/24 08:15 03/21/24 08:15 03/21/24 08:15 03/21/24 08:15 03/21/24 08:15
I&O
03/20/24 03/21/24 03/22/24
06:59 06:59 06:59
Intake Total 1440 / 1440 840 / 840
Balance 1440 / 1440 840 / 840
--- NOTE | 2024-03-21 08:46 | W.DS.TRANS ---
DC Summary - Hr Manager
-
Discharge Instructions:
Discharge Diagnosis/Procedures Rt Hip Fracture status post right hip
cephalomedullary nail fixation
Mild Acute Kidney Injury Resolved
Anemia likely acute blood loss post-procedure
Severe Iron deficiency and likely anemia of
chronic disease
HTN
Underweight BMI 18.3
Diet Regular
Activity With Walker,As tolerated,With assistance
Driving Restrictions Not until seen by your Dr
Blood Work Repeat CBC and BMP with a primary care provider
in 1 week of discharge.
Repeat Iron studies in 1 month of discharge with
a primary care provider.
Workup of anemia as outpatient
Other Services PT,OT
Wound Care Surgical dressing to remain in place 2 weeks
post-op (03/15/24-03/28/24)
Skin clip removal at 2 weeks post-op (03/28/24)
Instructions:
Stand-Alone Forms:
Changes to Home Medications: Yes
Discharge Medications:
DC Medications w/original date entered in [employer]
aspirin 81 mg PO DAILY Blood Clot Prevention/Tx 03/13/24
ezetimibe 10 mg tablet 10 mg PO DAILY High Cholesterol 03/13/24
losartan 50 mg tablet 50 mg PO DAILY Blood Pressure 03/13/24
rosuvastatin 40 mg tablet 40 mg PO DAILY High Cholesterol 03/13/24
acetaminophen 325 mg tablet 650 mg (2 x 325 mg) PO Q6HPRN PRN pain/fever/headache #30 tabs 03/18/24
aspirin 325 mg tablet 325 mg PO DAILY 23 days #23 tabs 03/18/24
ferrous sulfate 325 mg (65 mg iron) tablet (FeroSul) 325 mg PO DAILY 30 days #30 tabs 03/18/24
pantoprazole 40 mg tablet,delayed release 40 mg PO DAILY 23 days #23 tabs 03/18/24
polyethylene glycol 3350 17 gram/dose oral powder (Miralax) 4 g PO DAILY PRN constipation #119 grams 03/18/24
sennosides 8.6 mg-docusate sodium 50 mg tablet (Senna with Docusate Sodium) 2 tab-cap (2 x 8.6-50 mg) PO BID #30 tabs 03/18/24
oxycodone 5 mg tablet 5 mg PO BID PRN moderate pain #6 tabs 03/21/24
Home Medication Changes
new
aspirin 325 mg tablet 325 mg PO DAILY 23 days #23 tabs 03/18/24
ferrous sulfate 325 mg (65 mg iron) tablet (FeroSul) 325 mg PO DAILY 30 days #30 tabs 03/18/24
pantoprazole 40 mg tablet,delayed release 40 mg PO DAILY 23 days #23 tabs 03/18/24
polyethylene glycol 3350 17 gram/dose oral powder (Miralax) 4 g PO DAILY PRN constipation #119 grams 03/18/24
sennosides 8.6 mg-docusate sodium 50 mg tablet (Senna with Docusate Sodium) 2 tab-cap (2 x 8.6-50 mg) PO BID #30 tabs 03/18/24
oxycodone 5 mg tablet 5 mg PO BID PRN moderate pain #6 tabs 03/21/24
Pending Results: No
--- NOTE | 2024-03-21 09:00 | CM ---
Addendum entered by Charity Francois 03/21/24 10:04:
Spoke with pts daughter - aware pt for transfer today
Reports she will meet her mother at facility
Original Note:
Pt for discharge today
Discussed IMM
LM with Nara at [facility] [phone]
Transport scheduled for 0900
Plan - transport to [facility]
R - [phone], ext [phone]
- [phone]
== END 2024-03-21 09:33 | DRG 481 ==
LOC: 2 SOUTH 21:00
PROVIDERS: Internal Medicine; Physician Assistant; ADMITTING PHYSICIAN Internal Medicine; ATTENDING PHYSICIAN Hospitalist; CONSULT PHYSICIAN Orthopaedic Surgery; CONSULT PHYSICIAN Physical Medicine & Rehabilitation; EMERGENCY PHYSICIAN Student in an Organized Health Care Education/Training Program
PROC: 0QS604Z Reposition Right Upper Femur with Internal Fixation Device, Open Approach (ICD-10-PCS; 2024-03-14)
PROC: 30233N1 Transfusion of Nonautologous Red Blood Cells into Peripheral Vein, Percutaneous Approach (ICD-10-PCS; 2024-03-15)
DX: S72.141A Displaced intertrochanteric fracture of right femur, initial encounter for closed fracture (principal); D62 Acute posthemorrhagic anemia; N17.9 Acute kidney failure, unspecified; Z68.1 Body mass index [BMI] 19.9 or less, adult; I10 Essential (primary) hypertension; R63.6 Underweight; E83.39 Other disorders of phosphorus metabolism; D63.8 Anemia in other chronic diseases classified elsewhere; W19.XXXA Unspecified fall, initial encounter
CPT/HCPCS: 70450; 72125; 73502; 73552; 73564; 73610; 73630; 76000; 80048; 80053; 82607; 82746; 83540; 83550; 83735; 84100; 85014; 85018; 85025; 85027; 86850; 86900; 86901; 86920; 87324; 87449; 96374; 96375; 97116; 97163; 97167; 97530; 97535; 99285; C1713; C1769; J2916; P9016